=== PATIENT | female | born 1960 | race Caucasian/White ===

== ENCOUNTER 2017-03-24 15:46 | Emergency (ER) | payer BC, SELFPAY ==
[2017-03-24 16:17] LABS: UTC Influenza A Antigen Positive (Negative); UTC Influenza B Antigen Negative (Negative)
[2017-03-24 16:44] VITALS: BP 125/80; PULSE 92; RESP 20; TEMP 37.7; O2SAT 94
--- NOTE | 2017-03-24 16:51 | HMH.EDUTC ---
[facility] [place] Disposition Clinical Impression: Influenza A Disposition: Home, Self-Care Condition on Discharge: Good Instructions: DI for Influenza -- Adult Additional Instructions: * Discussed tamiflu risks and possible benefits. patient declined. * Lots of rest * Increase fluids, water, gatorade, powerade, pedialyte if /toddler/child * Monitor Temp. Tylenol every 4 hours as needed no more then 5 times a day or 4000mg in 24 hours and/or ibuprofen every 6 hours as needed no more then 3200mg in 24 hours (as long as your primary care doctor has told you that it is ok to take both) for fever/aches/pain. ER if fever no less than 101 despite tylenol and Ibuprofen * OTC cold/flu/sinus medication is ok but pick one. Do not take multiple different ones as they have similar ingredients and you can overdose on cold medication. * Inhaler every 4-6 hours as needed like you requested for chest tightness, wheezing intermittently * You (or your child) are contagious until no fever, aches, chills x 24 hours without medication for symptoms. Prescriptions: Albuterol Sulfate [Proair Respiclick] 90 mcg IH Q4H PRN #1 inh PRN Reason: Wheezing Referrals: Sharif Jalloh MD [Primary Care Provider] - (IMMEDIATELY for new or worsening symptoms, improvement followed by suddenly feeling worse OR no noticeable improvement over the next 48-72 hours. 911 for difficulty breathing ) Forms: Work/School Release Time of Disposition: 17:02 Medical Decision Making Vital Signs: 03/24/17 16:44 Temperature 100 F H Temperature Source Temporal Artery Scan Pulse Rate [Brachial] 92 H Respiratory Rate 20 Blood Pressure [Right Arm] 125/80 Blood Pressure Mean [Right Arm] 95 Blood Pressure Source [Right Arm] Automatic Cuff Blood Pressure Position [Right Arm] Sitting 02 Sat by Pulse Oximetry 94 L Oxygen Delivery Method Room Air - Lab Data Lab results reviewed: Yes: I reviewed the patient's lab results. Lab Results 03/24/17 16:14: Influenza Type A Ag Positive A, Influenza Type B Ag Negative - Toni Inquiry Pt receiving controlled substance: No [facility] [place] HPI - General Stated complaint: cough,sob Time Seen by Provider: 03/24/17 16:51 Mode of Arrival: Ambulatory Source of Information: Patient Limitations: No Limitations Description of Symptoms (Recalled from Triage Doc. by RN): DRY COUGH, TIGHTNESS IN CHEST, FEVERS, CHILLS SINCE WEDNESDAY HEENT Symptoms (Recalled from RN notes): Yes Resp Symptoms (Recalled from RN notes): Yes Skin Symptoms (Recalled from RN notes): No MS Symptoms (Recalled from RN notes): No Functional Status (Recalled from RN notes): NA - History of Present Illness Provider Complaint: c/o not feeling well since day before yesterday. Started w/ rhinorrhea and felt worse yesterday and today. Now aches, chills, cough. Hx of bronchitis last year. Reports at times, chest feels tight and hears slight wheezing like she did then. + tobacco abuse. Denies COPD. Hasn't taken or tried anything for symptoms. Around someone last week with similiar symptoms. - Related Data Previous Rx's Medication Instructions Recorded Albuterol Sulfate [Proair 90 mcg IH Q4H PRN #1 inh 03/24/17 Respiclick] Allergies Allergy/AdvReac Type Severity Reaction Status Date / Time No Known Allergies Allergy Verified 03/24/17 16:47 - Worker's Comp Is this a Worker's Comp case?: No [facility] History I have reviewed the patient's past medical history: Yes (denies PMHx) Medical History: Denies:: Chronic Obstructive Pulmonary Disease (COPD), Diabetes Mellitus Type 2, Hypertension Other Surgeries: Yes: Other (tonsillectomy, lipoma removed) - *Social History Smoking Status: Current every day smoker Tobacco Type: cigarettes Alcohol Intake: never - Psychiatric History Expresses thoughts of harming self/others: None Suicide Plan Description: No Plan ROS Obtained: Yes Systems reviewed as appropriate & no additional complaints - Constitutional Constitutional
--- NOTE | 2017-03-24 16:59 | ED_ITS ---
[facility] [place] Clinical Impression: Influenza A Disposition: Home, Self-Care Condition on Discharge: Good Instructions: DI for Influenza -- Adult Additional Instructions: * Discussed tamiflu risks and possible benefits. patient declined. * Lots of rest * Increase fluids, water, gatorade, powerade, pedialyte if /toddler/child * Monitor Temp. Tylenol every 4 hours as needed no more then 5 times a day or 4000mg in 24 hours and/or ibuprofen every 6 hours as needed no more then 3200mg in 24 hours (as long as your primary care doctor has told you that it is ok to take both) for fever/aches/pain. ER if fever no less than 101 despite tylenol and Ibuprofen * OTC cold/flu/sinus medication is ok but pick one. Do not take multiple different ones as they have similar ingredients and you can overdose on cold medication. * Inhaler every 4-6 hours as needed like you requested for chest tightness, wheezing intermittently * You (or your child) are contagious until no fever, aches, chills x 24 hours without medication for symptoms. Prescriptions: Albuterol Sulfate [Proair Respiclick] 90 mcg IH Q4H PRN #1 inh PRN Reason: Wheezing Referrals: Sharif Jalloh MD [Primary Care Provider] - (IMMEDIATELY for new or worsening symptoms, improvement followed by suddenly feeling worse OR no noticeable improvement over the next 48-72 hours. 911 for difficulty breathing ) Forms: Work/School Release Time of Disposition: 17:02 Medical Decision Making Vital Signs: 03/24/17 16:44 Temperature 100 F H Temperature Source Temporal Artery Scan Pulse Rate [Brachial] 92 H Respiratory Rate 20 Blood Pressure [Right Arm] 125/80 Blood Pressure Mean [Right Arm] 95 Blood Pressure Source [Right Arm] Automatic Cuff Blood Pressure Position [Right Arm] Sitting 02 Sat by Pulse Oximetry 94 L Oxygen Delivery Method Room Air - Lab Data Lab results reviewed: Yes: I reviewed the patient's lab results. Lab Results 03/24/17 16:14: Influenza Type A Ag Positive A, Influenza Type B Ag Negative - Toni Inquiry Pt receiving controlled substance: No [facility] [place] - General Stated complaint: cough,sob Time Seen by Provider: 03/24/17 16:51 Mode of Arrival: Ambulatory Source of Information: Patient Limitations: No Limitations Description of Symptoms (Recalled from Triage Doc. by RN): DRY COUGH, TIGHTNESS IN CHEST, FEVERS, CHILLS SINCE WEDNESDAY HEENT Symptoms (Recalled from RN notes): Yes Resp Symptoms (Recalled from RN notes): Yes Skin Symptoms (Recalled from RN notes): No MS Symptoms (Recalled from RN notes): No Functional Status (Recalled from RN notes): NA - History of Present Illness Provider Complaint: c/o not feeling well since day before yesterday. Started w/ rhinorrhea and felt worse yesterday and today. Now aches, chills, cough. Hx of bronchitis last year. Reports at times, chest feels tight and hears slight wheezing like she did then. + tobacco abuse. Denies COPD. Hasn't taken or tried anything for symptoms. Around someone last week with similiar symptoms. - Related Data Previous Rx's Medication Instructions Recorded Albuterol Sulfate [Proair 90 mcg IH Q4H PRN #1 inh 03/24/17 Respiclick] Allergies Allergy/AdvReac Type Severity Reaction Status Date / Time No Known Allergies Allergy Verified 03/24/17 16:47 - Worker's Comp Is this a Worker's Comp case?: No [facility] History I have r
== END 2017-03-24 17:11 | disposition home or self-care (01) ==
PROVIDERS: Emergency Provider Nurse Practitioner Family; Family Provider Family Medicine; PCP Family Medicine
DX: J09.X2 Influenza due to identified novel influenza A virus with other respiratory manifestations (principal); F17.210 Nicotine dependence, cigarettes, uncomplicated
CPT/HCPCS: 87804; 99202

== ENCOUNTER 2022-10-28 19:29 | Emergency (ER) | payer OTHER, SELFPAY ==
[2022-10-28] VITALS (7 sets, daily range): BP systolic 115–181; BP diastolic 59–82; PULSE 56–83; RESP 16–18; TEMP 36.7–36.9; O2SAT 95–97; BMI 32.5
--- NOTE | 2022-10-28 21:16 | HMH.EDGENADL ---
Discharge Plan Disposition Patient Disposition: Home, Self-Care Condition: Good Prescriptions Prescriptions: No Action promethazine-DM 120 ML Syrup 5 ml PO Q6HP PRN (Reason: Cough) Qty: 240 0RF azithromycin [Zithromax] 250 MG Tablet 250 mg PO UD DOSE PK Qty: 6 0RF Rx Instructions: Take two (2) tablets today, then one (1) tablet days #2 thru #5 albuterol sulfate 90 MCG aerosol powdr breath activated 90 mcg IH Q4H PRN (Reason: Wheezing) Qty: 1 0RF Rx Instructions: any generic albuterol Referrals Follow up/Referrals: Meghana Bates MD [Primary Care Provider] - See instructions Activity Restrictions/Add. Instructions Additional Instructions/Restrictions: At this time was felt you are safe to be discharged home. New or worsening symptoms please do not hesitate to return the emergency department. Please keep your pressure dressing on for 48 hours. Clinical Impressions Clinical Impression: Varicose vein of leg Discharge ED Provider: Marcin Cisneros General Adult HPI General Chief complaint: Skin/Abscess/Foreign Body Stated complaint: AO08/23@1900 Lt leg lac Time Seen by Provider: 10/28/22 21:02 Mode of Arrival: Ambulatory Source of Information: Patient Limitations: No Limitations Description of Symptoms (Recalled from ER Triage Doc. by RN): pt reports that she knicked her vericose vein and that she can not control the bleeding. right lower leg History of Present Illness HPI narrative: Patient is a 62-year-old female with past medical history of varicose veins on her bilateral lower extremities who presents emergency department for evaluation of bleeding. Patient was shaving her left ankle when she accidentally cut one of her varicose veins which has not stopped bleeding since prior to arrival. No other acute complaints at this time. Related Data Previous Rx's Medication Instructions Recorded albuterol sulfate 90 mcg/actuation 90 mcg IH Q4H PRN Wheezing #1 inh 03/24/17 breath activated powder inhaler azithromycin 250 mg tablet 250 mg PO UD DOSE PK ##6 04/05/18 (Zithromax) promethazine-DM 6.25 mg-15 mg/5 mL 5 ml PO Q6HP PRN Cough ##240 04/05/18 oral syrup Allergies Allergy/AdvReac Type Severity Reaction Status Date / Time No Known Allergies Allergy Verified 03/24/17 16:47 [facility] Disclaimer: The information contained in this section may have been updated after the patient was seen, as this information can be updated by other users. Social History Smoking Status: Current every day smoker tobacco type: cigarettes second hand exposure: Yes alcohol intake: never current occupational status: retired Travel in the last 8 weeks: None housing: house ROS Obtained: Yes Systems reviewed as appropriate & no additional complaints except as documented Physical Exam General General appearance: alert and in no apparent distress Head Head exam: atraumatic and normocephalic Eye Eye exam: Present PERRL and EOMI ENT ENT exam: Present mucous membranes moist Neck Neck exam: Present normal inspection Chest Chest inspection: Present normal inspection and symmetric chest wall rise Respiratory Respiratory exam: Present normal lung sounds bilaterally; Absent respiratory distress Cardiovascular Cardiovascular exam: Present regular rate and normal rhythm Abdominal Exam Abdominal exam: Present soft Extremities Exam Extremities exam: Present other (Consistent oozing venous blood left medial ankle, punctate wound) Neurological Exam Neurological exam: Present alert Psychiatric Psychiatric exam: Present normal affect Skin Skin exam: Present warm and dry Medical Decision Making Toni Inquiry Pt receiving controlled substance: No Vital Signs: 10/28/22 19:31 10/28/22 20:00 10/28/22 20:30 Temperature 98.1 F Temperature Source Oral Pulse Rate 83 75 Pulse Rate [Right] 82 Respiratory Rate 18 Blood Pressure 120/69 116/68 Blood Pressure [Right Arm] 18
== END 2022-10-28 23:22 | disposition home or self-care (01) ==
PROVIDERS: Emergency Provider Emergency Medicine; PCP Family Medicine
DX: I83.892 Varicose veins of left lower extremity with other complications (principal); F17.210 Nicotine dependence, cigarettes, uncomplicated
CPT/HCPCS: 90715; 96372; 99283

== ENCOUNTER → 2022-12-15 11:36 | Outpatient (CLI) | payer OTHER, SELFPAY ==
--- NOTE | 2022-12-15 11:56 | XR_ITS ---
FINAL REPORT CLINICAL HISTORY: cervicalgia, numbness and tingling BUE FINDINGS: CERVICAL SPINE 3 views were obtained. There is no acute fracture. There is mild retrolisthesis of C5 on C6. Moderate degenerative changes are noted. There is no soft tissue abnormality. IMPRESSION: Degenerative change with no acute bony abnormality. Reviewed, Interpreted and Dictated by Neel Garnica III, MD Transcribed by Sharifa Christensen Authenticated and [facility]
[2022-12-15 12:20] LABS: Basophils # 0.1 K/mm3 (0-0.2); Eosinophils # 0.3 K/mm3 (0.0-0.4); Eosinophils % 2.5 % (0.1-12.0); Hematocrit 46.9 % (37.0-47.0); Lymphocytes # 3.1 K/mm3 (0.7-4.5); Lymphocytes % 30.8 % (10-50); Mean Corpuscular HGB Conc 34.1 g/dL (31.8-35.4); Mean Corpuscular Hemoglobin 32.9 pg (27.0-31.2); Mean Corpuscular Volume 96.5 fl (81-99); Mean Platelet Volume 10.3 fl (7.4-10.4); Monocytes # 0.4 K/mm3 (0.1-1.0); Monocytes % 4.2 % (1.7-9.3); Neutrophils # 6.2 K/mm3 (1.8-7.8); Neutrophils % 61.6 % (37.0-80.0); Platelet Count 164 K/mm3 (142-424); Red Blood Count 4.86 M/mm3 (4.20-5.40); Red Cell Distribution Width 13.7 % (11.5-17.5); White Blood Count 10.1 K/mm3 (4.8-10.8)
[2022-12-15 14:57] LABS: Alanine Aminotransferase 45 U/L (12-78); Albumin Level 4.8 g/dl (3.5-5.0); Albumin/Globulin Ratio 1.8 (1.1-1.8); Alkaline Phosphatase 82 U/L (38-126); Anion Gap 11.4 mEq/L (5-15); Aspartate Amino Transferase 40 U/L (14-36); Bilirubin,Total 0.9 mg/dl (0.2-1.3); Blood Urea Nitrogen 23 mg/dl (7-17); Carbon Dioxide 30 mmol/L (22.0-30.0); Chloride 102 mmol/L (98-107); Chol/HDL Ratio 6.2 (1-3.5); Cholesterol 266 mg/dl (140-200); Estimated Glomerular Filt Rate 72 ml/min (>60); GFR (African American) 87 ML/MIN (>60); Globulin 2.7 g/dL (1.3-3.2); Glucose 104 mg/dl (74-100); HDL Cholesterol 43 mg/dl (40-60); Magnesium 1.7 mg/dl (1.6-2.3); Potassium 4.4 mmoL/L (3.5-5.1); Sodium 139 mmol/L (136-145); Total Protein,Serum 7.5 g/dl (6.3-8.2); Triglycerides 221 mg/dl (30-150); VLDL Cholesterol 44 mg/dL (0-40)
[2022-12-15 15:08] LABS: Direct LDL Cholesterol 170.99 mg/dL (100-129)
== END ==
PROVIDERS: PCP Nurse Practitioner Family; Visit Provider Nurse Practitioner Family
DX: R51.9 Headache, unspecified (principal); I10 Essential (primary) hypertension; M54.2 Cervicalgia; Z72.0 Tobacco use
CPT/HCPCS: 36415; 72040; 80053; 80061; 83735; 84443; 85025

== ENCOUNTER → 2023-02-23 16:51 | Outpatient (CLI) | payer OTHER, SELFPAY | PROVIDERS: PCP Nurse Practitioner Family; Visit Provider Nurse Practitioner Family | DX: J32.9 Chronic sinusitis, unspecified (principal) | CPT/HCPCS: 87635 ==

== ENCOUNTER 2023-03-30 15:56 | Emergency (ER) | payer MEDICARE, SELFPAY ==
[2023-03-30 16:15] VITALS: BP 141/57; PULSE 65; RESP 18; TEMP 36.9; O2SAT 96; BMI 33.5
--- NOTE | 2023-03-30 16:22 | EXP.UTC ---
Discharge Plan Disposition Patient Disposition: Home, Self-Care Condition: Good Prescriptions Prescriptions: New polymyxin B sulf-trimethoprim 10,000 unit- 1 mg/mL drops 1 drp Eye-Right Q3H 7 Days Qty: 10 0RF Rx Instructions: while awake; do not exceed 6 doses in 24 hours No Action fluticasone propionate [Flonase Allergy Relief] 50 mcg/actuation spray,suspension 1 spray intranasal DAILY PRN (Reason: allergy symptoms) 30 Days Qty: 16 2RF Rx Instructions: administer into each nostril atorvastatin 20 mg tablet 20 mg PO DAILY 90 Days Qty: 90 0RF lisinopril 5 mg tablet 5 mg PO DAILY 90 Days Qty: 90 0RF lisinopril 10 mg tablet 10 mg PO DAILY 90 Days Qty: 90 0RF Referrals Follow up/Referrals: Ree Rao APRN [Primary Care Provider] - See instructions Activity Restrictions/Add. Instructions Additional Instructions/Restrictions: Use the eye drops as directed. Apply warm wet compresses to your right upper eye lid for 10 to 15 minutes three or four times per day for the next several days. Follow up with your regular doctor. Follow up with your eye doctor in 2 to 3 days if this is not getting some better by then. GO TO THE ER FOR ANY WORSENING SYMPTOMS OR CONCERNS Clinical Impressions Clinical Impression: Chalazion of right eye Instructions Patient Instructions: How to Instill Eye Drops, MARSHA Caraballo for Chalazion Discharge ED Provider: Gal Decker [facility] [place] HPI General Stated complaint: knot on her right eye Time Seen by Provider: 03/30/23 16:22 History of Present Illness Provider Complaint: She states that 3 days ago she noticed she was having some right eye discomfort. Once she examined her eye she noted a small bump near the outer corner beneath the upper eye lid. At this time she continues to c/o mild right eye discomfort. She denies any injury or foreign body. Related Data Previous Rx's Medication Instructions Recorded atorvastatin 20 mg tablet 20 mg PO DAILY 90 days #90 tabs 02/15/23 lisinopril 10 mg tablet 10 mg PO DAILY 90 days #90 tabs 02/15/23 lisinopril 5 mg tablet 5 mg PO DAILY 90 days #90 tabs 02/15/23 fluticasone propionate 50 1 spray intranasal DAILY PRN 02/23/23 mcg/actuation nasal allergy symptoms 30 days #16 grams spray,suspension (Flonase Allergy Relief) polymyxin B sulfate 10,000 1 drp Eye-Right Q3H 7 days #10 mL 03/30/23 unit-trimethoprim 1 mg/mL eye drops Allergies Allergy/AdvReac Type Severity Reaction Status Date / Time No Known Allergies Allergy Verified 03/30/23 16:31 [facility] Dis[facility]: The information contained in this section may have been updated after the patient was seen, as this information can be updated by other users. Medical History Hypertension Surgical History H/O excision of mass H/O tubal ligation Family History Mother Anemia Cancer Hypertension Father Heart attack Coronary artery disease Hyperlipidemia Grandmother Stroke Family/Other Thyroid disorder Social History Smoking Status: Current every day smoker tobacco type: cigarettes second hand exposure: Yes alcohol intake: never current occupational status: retired Travel in the last 8 weeks: None housing: house ROS Obtained: Yes All systems reviewed & no additional complaints except as documented Constitutional Constitutional: Denies chills and Denies fever(s) Eyes Eyes: Reports as per HPI, Denies change in vision and Denies eye discharge ENT Ears, Nose, Mouth, and Throat: Denies dizziness, Denies otalgia and Denies sore throat Cardiovascular Cardiovascular: Denies chest pain Respiratory Respiratory: Denies shortness of breath, Denies chest congestion, Denies cough, Denies stridor and Denies wheezing Gastrointestinal Gastrointestingal: Denies nausea or vomiting Musculoskeletal Musculoskeletal: Reports system reviewed and no additional complaints, except as documented and Denies arthralgias Integumentary/Breasts Skin/Breast: Denies rash Neurologic Neurologic: Denies dizziness and Denies paresthesias Allergic/Immunologic Allergic/Immunologic: Denies wheezing Physical Exam General General appearance: alert and in no apparent distress Head Head exam: atraumatic, normocephalic and normal inspection Eye Eye exam: Present PERRL and EOMI Expanded Eye Exam Eyelids: left: normal inspection and right: erythema and stye Pupils: Left: size (2), Right: size (2) and Bilateral: regular, round and reactive Sclera/Conjunctival: bilateral: normal inspection ENT ENT exam: Present normal exam, normal oropharynx, mucous membranes moist, TM's normal bilaterally and normal external ear exam Neck Neck exam: Present normal inspection, full ROM and trachea midline; Absent meningismus or lymphadenopathy Chest Chest inspection: Present normal inspection and symmetric chest wall rise; Absent tenderness Respiratory Respiratory exam: Present normal lung sounds bilaterally; Absent respiratory distress Cardiovascular Cardiovascular exam: Present regular rate and normal rhythm; Absent JVD Abdominal Exam Abdominal exam: Present soft and normal bowel sounds; Absent distention, tenderness or guarding Extremities Exam Extremities exam: Present normal inspection, full ROM and normal capillary refill; Absent calf tenderness Back Exam Back exam: Present normal inspection; Absent tenderness Neurological Exam Neurological exam: Present alert and oriented X3 Psychiatric Psychiatric exam: Present normal affect and normal mood Skin Skin exam: Present warm, dry, intact and normal color Lymphatic Lymphatic Findings: no adenopathy Medical Decision Making Medical Records Medical records reviewed: No I reviewed the patient's medical records. Toni Inquiry Pt receiving controlled substance: No
[2023-03-30 16:48] VITALS: BP 141/57; PULSE 65; RESP 19; TEMP 36.9; O2SAT 96
== END 2023-03-30 16:48 | disposition home or self-care (01) ==
PROVIDERS: Emergency Provider Nurse Practitioner Family; PCP Nurse Practitioner Family
DX: H53.141 Visual discomfort, right eye (principal); H00.11 Chalazion right upper eyelid; F17.210 Nicotine dependence, cigarettes, uncomplicated; I10 Essential (primary) hypertension
CPT/HCPCS: 99204; 99212; G0463

== ENCOUNTER 2023-04-14 07:06 | Outpatient (CLI) | payer MEDICARE, SELFPAY ==
--- NOTE | 2023-04-14 | CA_ITS ---
APPROVED REPORT Exam: Exercise Treadmill Technologist: Silvana Anand, Ht: 5 ft 4 in Wt: 195 lbs BSA: 1.94 m2 HR: 58 bpm BP: 136/76 mmHg Rhythm: NSR Medical History Medical History: HTN, Hyperlipidemia, Smoking Medications: Lisinopril,,,,, Atorvastatin,,,,, Allergies: No known drug allergies Cardiac Risk Factors: HTN, Hyperlipidemia, FHX of CAD, Smoking Stress Test Details Test: Geoff HR Resting HR: 75 bpm Max Heart Rate (APMHR): 155 bpm Max HR Achieved: 140 bpm Target HR (85% APMHR): 132 bpm % of APMHR: 90 Recovery HR: 83 bpm HR response to stress: Normal HR response to stress BP Resting BP: 136.0/76 mmHg Max BP: 260/86 mmHg Recovery BP: 137.0/79.0 mmHg BP response to stress: Abnormal hypertensive response to stress. ECG Resting ECG: NSR Stress EC mm upsloping ST depression Arrhythmia: Occasional PACs Recovery ECG: Return to baseline within 3 minutes of recovery Recovery Arrhythmia: None Clinical Exercise duration: 04:15 min Highest Stage Achieved: Stage 0: 1.7 mph at 0% grade. Exercise capacity: 4.6 METs Overall Exercise Capacity for Age: Poor Stress ECG Conclusion The patient was able to exercise for a total of 4 minutes, 15 seconds. She achieved a total of 4.6 METS. She has poor exercise capacity compared to age and sex matched peers. She has normal HR, but exaggerated hypertensive BP, response to exercise. MAX HR: 140 % OF PM: 90% MAX BP: 216/86 METS: 4.6 Test stopped due to dyspnea, no chest pain. Arrhythmias: Occasional PACs probabl ST changes: [address] depression Conclusion: Poor exercise capacity. Hypertensive BP response to exercise. ECG stress test suggestive of possible ischemia. Myoview images are reported separately. Test Summary REST . . . . . . . Standing REST . . . . . . . Sitting REST 05:17 0.0 0.0 75 . 136/ 76 . . Stage 1 01:00 10.0 1.7 103 . . . . Stage 1 02:00 10.0 1.7 124 . . . . Stage 1 . . . . . . . Stage held Stage 1 03:00 10.0 1.7 133 . 216/ 86 . . Stage 1 04:00 10.0 1.7 138 . 216/ 86 . . Stage 1 . . . . . . . Stage resumed Stage 1 04:15 10.0 1.7 139 . 216/ 86 . Stop exercise at 04:15 RECOVERY 01:00 0.0 0.0 124 . . . . RECOVERY 02:00 0.0 0.0 101 . . . . RECOVERY 03:00 0.0 0.0 86 . 205/ 83 . . RECOVERY 04:00 0.0 0.0 89 . 205/ 83 . . RECOVERY 05:00 0.0 0.0 89 . 173/ 72 . . RECOVERY 06:00 0.0 0.0 81 . 182/ 77 . . RECOVERY 07:00 0.0 0.0 82 . 182/ 77 . . RECOVERY 07:46 0.0 0.0 80 . 137/ 79 . . Electronically signed by : Inocencia Cee MD 04/17/2023 23:40:00
--- NOTE | 2023-04-14 07:06 | NM_ITS ---
APPROVED REPORT Exam: Nuclear Stress Test Indication: SOB, HTN, DM, High cholesterol, Family history, CAD Patient Location: Outpatient Stress Tech: Silvana Anand [place] Tech:Sheryl Parker, ARRT, RT (R)(N) Ht: 5 ft 4 in Wt: 195 lbs Bra Size: 38DD HR: 75 bpm BP: 136/76 mmHg BSA: 1.94 m2 Rhythm: NSR TID: 1.12 BMI: 33.4 History: SOB, HTN, DM, High cholesterol, Family history, CAD Procedure: Patient exercised on Geoff protocol 4:15 minutes and sec, resting heart rate 75 bpm, resting blood pressure 136/76 mmHg, with exercise maximum heart rate achived was 140 bpm which is 90 % of the maximum predicted heart rate and blood pressure was 216/86 mmHg. Test was stopped due to SOB. Patient denied any complaint of chest pain. Patient has exercise capacity, achieved 4.6 METs of workload on treadmill, the blood pressure response to exercise was . Cardiac Stress and Resting SPECT Images: Cardiac Stress and Resting SPECT images were obtained using technetium 99m Myoview 31.6 mCi stress and 10.69 mCi at rest. Resting and stress imaging in supine and prone positions demonstrate no evidence of fixed or reversible perfusion defects. Gated imaging demonstrates normal global and regional LV systolic function. LVEF is calculated at 62%. Conclusion: No evidence of fixed or reversible perfusion defects. Gated imaging demonstrates normal global and regional LV systolic function. LVEF is calculated at 62%. Of note, the patient had poor exercise capacity during ECG stress test, as well as markedly elevated XLL=650 mmHg at peak stress. Aggressive BP control is recommended. Electronically signed by : Inocencia Cee MD 04/17/2023 23:42:15
[2023-04-14] MEDS: ISOTOPE MYOVIEW (PER STUDY) 1 DOSE IV (09:11)
[2023-04-14] MEDS: SODIUM CHLORIDE 0.9% 10ML SYR (RAD ONLY) 10 ML IV ×2 (09:11)
--- NOTE | 2023-04-14 09:18 | CA_ITS ---
APPROVED REPORT EXAM: Comprehensive 2D, Doppler, and color-flow Echocardiogram Diamond Powder Technician: MARIANO Kilgore, RVS Ht: 5 ft 4 in Wt: 195lbs BSA: 1.94 BP: 112/85 mmHg Indications: Smoker, Dyspnea, Edema, HTN, HLD 2D Dimensions Left Atrium 3.19 cm LA Volume 46.40 mL LA Volume Index [id number] mL/m2 (M/F) 16-34 M-Mode Dimensions RVDd 2.14 cm (0.9-2.6) LA Diam 3.60 cm (1.9-4.0) LVDd 4.35 cm (3.5-5.7) LVDs 3.15 cm (3.5-5.7) IVSd 0.94 cm (0.6-1.1) PWd 1.04 cm (0.6-1.1) EF (Teich) 53.90% EPSs 0.29 cm FS 27.60% EDV (Teich) 85.40 mL TAPSE 2.38 (<1.7) ESV (Teich) 39.40 mL LV Diastology E Decel Time 273 (160-240 msec) E/A Ratio 0.61 MED A' 12.80 cm/s LAT A' 13.40 cm/s Aortic Valve HERVE Index 1.23 cm2/m2 AoV Peak Damian. 138.0 (50-130 cm/s) AO Peak GR. 7.60 mmHg AO Mean GR. 3.90 (<5 mmHg) AO VTI 29.7 (18-25 cm) HERVE (VTI) 2.43 (2.5-4.5 cm2) Mitral Valve MV A Velocity 84.0 (40-130 cm/s) E/A Ratio 0.61 Pulmonary Valve WI End VMAX 154.0 cm/s Left Ventricle The left ventricle is normal size. The left ventricular systolic function is normal. The left ventricular ejection fraction is within the normal range. There is normal left ventricular wall thickness. There is normal LV segmental wall motion. The left ventricular diastolic function is normal. LVEF is 60%. Right Ventricle The right ventricle is normal size. The right ventricular systolic function is normal. Atria The left atrium size is normal. The right atrium size is normal. There is no Doppler evidence of interatrial shunt. Aortic Valve The aortic valve opens well. There is no aortic valvular stenosis. No aortic regurgitation is present. Mitral Valve The mitral valve is normal in structure. No evidence of mitral valve stenosis. There is no mitral valve regurgitation noted. Tricuspid Valve The tricuspid valve leaflets are thin and pliable. Trace tricuspid regurgitation. There is insufficient TR jet to estimate RVSP. Pulmonic Valve The pulmonary valve is normal in structure. Trace pulmonic regurgitation. Great Vessels The aortic root is normal in size. The ascending aorta is normal in size. IVC is normal in size and collapses >50% with inspiration. Pericardium Trivial pericardial effusion is noted anteriorly. No echo indications of tamponade. Other Information Study Quality: Adequate Conclusion Normal biventricular systolic function. No significant valvular stenosis or regurgitation. Trivial pericardial effusion. Electronically signed by : Inocencia Cee MD 04/18/2023 14:53:13
[2023-04-14 11:16] LABS: Basophils # 0.1 K/mm3 (0-0.2); Basophils % 1.1 % (0.1-2.0); Eosinophils # 0.4 K/mm3 (0.0-0.4); Eosinophils % 3.1 % (0.1-12.0); Hematocrit 47.1 % (37.0-47.0); Hemoglobin 15.6 g/dL (12.2-16.2); Lymphocytes # 3.4 K/mm3 (0.7-4.5); Lymphocytes % 29.6 % (10-50); Mean Corpuscular HGB Conc 33.2 g/dL (31.8-35.4); Mean Corpuscular Volume 96.3 fl (81-99); Mean Platelet Volume 10.5 fl (7.4-10.4); Monocytes # 0.4 K/mm3 (0.1-1.0); Monocytes % 3.9 % (1.7-9.3); Neutrophils # 7.1 K/mm3 (1.8-7.8); Neutrophils % 62.3 % (37.0-80.0); Platelet Count 178 K/mm3 (142-424); Red Blood Count 4.89 M/mm3 (4.20-5.40); Red Cell Distribution Width 13.7 % (11.5-17.5); White Blood Count 11.3 K/mm3 (4.8-10.8)
[2023-04-14 11:33] LABS: Chloride 104 mmol/L (98-107); Potassium 4.4 mmoL/L (3.5-5.1); Sodium 140 mmol/L (136-145)
[2023-04-14 11:35] LABS: Bilirubin,Unconjugated 0.8 mg/dL (0.0-1.1); Blood Urea Nitrogen 15 mg/dl (7-17); Estimated Glomerular Filt Rate 72 ml/min (>60); GFR (African American) 87 ML/MIN (>60)
[2023-04-14 11:36] LABS: Alanine Aminotransferase 41 U/L (12-78); Albumin Level 4.4 g/dl (3.5-5.0); Alkaline Phosphatase 90 U/L (38-126); Anion Gap 9.4 mEq/L (5-15); Aspartate Amino Transferase 43 U/L (14-36); Bilirubin,Direct 0.1 mg/dl (0.0-0.4); Bilirubin,Indirect 0.8 mg/dL (0.0-0.9); Bilirubin,Total 0.9 mg/dl (0.2-1.3); Calcium 9.8 mg/dl (8.4-10.2); Carbon Dioxide 31 mmol/L (22.0-30.0); Chol/HDL Ratio 4.2 (1-3.5); Cholesterol 179 mg/dl (140-200); Glucose 93 mg/dl (74-100); HDL Cholesterol 43 mg/dl (40-60); Total Protein,Serum 6.9 g/dl (6.3-8.2); Triglycerides 163 mg/dl (30-150); VLDL Cholesterol 33 mg/dL (0-40)
[2023-04-14 11:51] LABS: Free T4 (Free Thyroxine) 0.87 ng/dl (0.78-2.19)
[2023-04-14 12:06] LABS: Thyroid Stimulating Hormone 1.15 uIU/mL (0.465-4.68)
== END 2023-04-14 23:59 ==
LOC: RAD 07:06
PROVIDERS: PCP Nurse Practitioner Family; Visit Provider Nurse Practitioner Family
DX: I10 Essential (primary) hypertension (principal); R06.02 Shortness of breath; R06.09 Other forms of dyspnea; Z82.49 Family history of ischemic heart disease and other diseases of the circulatory system; Z79.899 Other long term (current) drug therapy
CPT/HCPCS: 36415; 78452; 80048; 80061; 80076; 83735; 84439; 84443; 85025; 93017; 93018; 93306; A9502

== ENCOUNTER 2023-05-17 12:35 | Outpatient (CLI) | payer MEDICARE, SELFPAY ==
--- NOTE | 2023-05-17 12:35 | CT_ITS ---
FINAL REPORT CLINICAL HISTORY: neck pain, stiffness, sinus pressure, pain at base of skull, pain in neck FINDINGS: CT CERVICAL SPINE WITHOUT CONTRAST TECHNIQUE: Axial images were obtained of the cervical spine by computed tomography. Coronal and sagittal reconstruction process performed. This study was performed with techniques to keep radiation doses as low as reasonably achievable (ALARA). Individualized dose reduction techniques using automated exposure control or adjustment of mA and/or kV according to the patient's size were employed. FINDINGS: There is no acute fracture or subluxation. There are mild to moderate degenerative changes. Disc osteophyte complexes are seen at C5-6 and C6-7. There is mild central canal stenosis at C5-6 with neuroforaminal narrowing worst at C5-6. Limited images of the lung apices demonstrate emphysema and scarring. IMPRESSION: Degenerative changes with no acute bony abnormality. Reviewed, Interpreted and Dictated by Neel Garnica III, MD Transcribed by Sharifa Christensen Authenticated and [facility]
== END 2023-05-17 23:59 ==
LOC: RAD 12:35
PROVIDERS: PCP Nurse Practitioner Family; Visit Provider Nurse Practitioner Family
DX: M54.2 Cervicalgia (principal); M43.6 Torticollis
CPT/HCPCS: 72125

== ENCOUNTER 2023-07-22 13:39 | Outpatient (RCR) | payer MEDICARE, SELFPAY | END 2023-07-22 15:00 | disposition home or self-care (01) | LOC: PT 13:39 | PROVIDERS: Visit Provider Specialist/Technologist Athletic Trainer | DX: M50.122 Cervical disc disorder at C5-C6 level with radiculopathy (principal) | CPT/HCPCS: 97163 ==

== ENCOUNTER 2024-05-11 15:12 | Outpatient (CLI) | payer MEDICARE, SELFPAY ==
[2024-05-11 16:27] LABS: Coronavirus 19, PCR Not Detected (NotDetected); Human Rhinovirus Not Detected (NotDetected); Influenza A, PCR Not Detected (NotDetected); Influenza B, PCR Not Detected (NotDetected); Respiratory Syncytial Virus Not Detected (NotDetected)
== END 2024-05-11 23:59 | disposition home or self-care (01) ==
LOC: LAB.DROPOF 05-15 15:13
PROVIDERS: PCP Nurse Practitioner Family; Visit Provider Nurse Practitioner Family
DX: J06.9 Acute upper respiratory infection, unspecified (principal)
CPT/HCPCS: 87631

== ENCOUNTER 2024-05-18 12:47 | Outpatient (CLI) | payer MEDICARE, SELFPAY ==
--- NOTE | 2024-05-18 12:48 | MM_ITS ---
PROCEDURE INFORMATION: Exam: MG Bilateral Screening 3D Mammography Exam date and time: 05/18/2024 1:02 PM Age: 64 years old Clinical indication: Screening examination TECHNIQUE: Imaging protocol: Bilateral Screening tomosynthesis and 2D mammography including computer-aided detection (CAD) when performed. COMPARISON: No relevant prior studies available. FINDINGS: MAMMOGRAPHY: Breast composition: There are scattered areas of fibroglandular density. Mass: None. Architectural distortion: None. Calcifications: No suspicious calcifications. Asymmetric density: None. Skin thickening: None. Axillary adenopathy: None. IMPRESSION: No mammographic evidence of malignancy. Annual screening is recommended unless otherwise clinically indicated. ASSESSMENT: BI-RADS Category 1: Negative.
== END 2024-05-18 23:59 | disposition home or self-care (01) ==
LOC: RAD 12:48
PROVIDERS: PCP Nurse Practitioner Family; Visit Provider Nurse Practitioner Family
DX: Z12.31 Encounter for screening mammogram for malignant neoplasm of breast (principal)
CPT/HCPCS: 77063; 77067

== ENCOUNTER 2024-06-20 13:31 | Outpatient (CLI) | payer MEDICARE, SELFPAY ==
--- OUTSIDE RECORDS SUMMARY | 2024-06-20 13:34 | XMS_ITS | Clinical Summary ---
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 Name Role Phone KB BLACK Unavailable [phone] Noe Kilpatrick MD Unavailable [phone] Reason for Visit and Chief Complaint The Chief Complaint is: Stiff neck Problems Includes: Problems addressed during this encounter and other active Problems All Visits Onset Date Resolved Date Provider Condition S tatus Neck Pain 07/05/2023 Wilder Smith PA-C Active Last Documented On 11:06AM ; [facility] Plan of Treatment - Patient screened for future fall risk: documentation of any fall with injury in past year - Last Documented On 07/14/2023 10:42AM ; [facility] Fall Risk Assessment: This patient has been identified as a fall risk. Balance/gait along with postural blood pressure, vision and home fall hazards have been assessed. Medications have been reviewed, and recommendations made with regard to contributing factors for future falls. Plan of care: Consideration of vitamin D supplementation along with balance and strength training with consideration for formal physical therapy has been discussed with the patient. - Last Documented On 07/14/2023 10:42AM ; [facility] Patient was seen by myself Wilder Smith PA-C. Patient will follow up with Dr. Kilpatrick in 1 month for her neck we are going to do some physical therapy to start that also going to refer her to Neurology to evaluate this lesion denies see at C1-C2 but not commented on by the radiologist. This may or may not be causing some facial symptoms that she is having when she is coughing were causing possibly a trigeminal neuralgia - Last Documented On 07/14/2023 10:42AM ; [facility] Pending Tests Order Diagnosis Results Due Ordering P rovider Therapy - Physical Therapy Cervical Tobacco abuse counseling 07/14/23 Wilder Smith PA-C Last Documented On 4 10:21AM ; [facility] Radiology - MRI MRI Cervical Spine Cervicalgia 07/19/23 Wilder Smith PA-C Last Documented On 4 1:28PM ; [facility], [facility] Instructions to patient Intervention and counseling on cessation of tobacco use Last Documented On 4 10:05AM ; [facility], [facility] Intervention and counseling on cessation of tobacco use Last Documented On 4 10:09AM ; [facility], [facility] Lose weight Last Documented On 4 10:05AM ; [facility], [facility] Assessments Includes: Assessments from this encounter Findings - Overweight - Last Documented On 07/14/2023 10:42AM ; [facility], [facility] C5-C6 DDD - Last Documented On 07/14/2023 10:42AM ; [facility], [facility] Possible lesion seen on T2 possibly causing some trigeminal neuralgia - Last Documented On 07/14/2023 10:42AM ; [facility], [facility] Instructions Includes: Instructions from this encounter Instructions to patient Intervention and counseling on cessation of tobacco use Last Documented On 4 10:05AM ; [facility], [facility] Intervention and counseling on cessation of tobacco use Last Documented On 4 10:09AM ; [facility], [facility] Lose weight Last Documented On 4 10:05AM ; [facility], [facility] Medical Equipment - Implanted Devices Includes: Current Devices No Medical Equipment Recorded Medications Includes: Medications discussed during this encounter and other current Medications Current Medications (continue as prescribed) Aspirin 81 MG Oral Tablet Delayed Release 07/05/2023 Provider: Diagnosis: Last Documented On 4 11:00AM By Jennifer LOPEZS, [facility] Daily Multivitamin Oral Capsule 07/05/2023 Provider: Diagnosis: Last Documented On 4 11:00AM By Jennifer Archibald ; [facility] Centrum Silver 50+Women Oral Tablet 07/05/2023 Provi isabelle: Diagnosis: Last Documented On 4 11:07AM By Sandra Loza ; [facility], [facility] Atorvastatin Calcium 20 MG Oral Tablet 05/21/2023 Pr ovider: KB BLACK Diagnosis: Last Documented On 4 11:06AM By Sandra Loza ; [facility], [facility] Lisinopril 20 MG Oral Tablet 05/21/2023 Provider: KB SCHROEDERNER Diagnosis: Last Documented On 4 11:06AM By Sandra Loza ; [facility], [facility] Meloxicam 15 MG Oral Tablet 05/21/2023 Provider: KB WAYNE Diagnosis: Last Documented On 4 11:06AM By Sandra Loza ; [facility], [facility] Naproxen 500 MG Oral Tablet 04/16/2023 Provider: KBMichael BLACK Diagnosis: Last Documented On 4 11:06AM By Sandra Loza ; [facility], [facility] Cyclobenzaprine HCl 10 MG Oral Tablet 04/16/2023 Pro vider: KB BLACK Diagnosis: Last Documented On 4 11:06AM By Sandra Loza ; [facility], [facility] Polymyxin B-Trimethoprim 100 00-0.1 UNIT/ML-% Ophthalmic Solution 03/30/2023 Provider: Diagnosis: Last Documented On 4 11:06AM By Sandra Loza ; [facility], [facility] Medications Administered Includes: Administered Medications from this encounter No Administered Medications Recorded Vital Signs Includes: Vital Signs from this encounter Vital Name 07/14/2023 10:08A Height (in) 64 Weight (lb) 195 Body Mass Index 33.5 Body Surface Area 1.9 Pain Level 1 Note: lc Last Documented: On 07/14/2023 10:08A M ; [facility], [facility] Results Includes: Results discussed during this encounter No Results Recorded For Specified Dates History of Present Illness Includes: History of Present Illness from this encounter HPI Nicole Ochoa is a 63 year old female. - Symptoms Grinding and popping Sitting up straight makes pain better Looking down makes pain worse. - Allergy list reviewed - Problem list reviewed - Medication list reviewed - Previous history of new onset pain Injury is not work related or an automotive accident - Patient pain level from 1-10: 3 - History of Home Exercise - No previous treatment. - - Review of medications documented Medications used for this condition: Follow up of her cervical spine MRI. She has been dealing with the neck pain that started August 2022 no specific injury she does feel better when she is on anti-inflammatories. She not describing any radicular symptoms with this however. When she states that she coughs she does get this pain across the left side of her face and some associated ear and jaw pain with it and does feel like her eyes when it popped out the back of her head. No bowel or bladder issues with this. No previous neck surgery. Social History Description Last Updated Alcohol use 07/14/2023 Last Documented On 4 10:42AM ; [facility], [facility] Caffeine use 07/14/2023 Last Documented On 4 10:42AM ; [facility], [facility] No recent change in diet 07/14/2023 Last Documented On 4 10:42AM ; [facility], [facility] Not exercising regularly 07/14/2023 Last Documented On 4 10:42AM ; [facility], [facility] Not using drugs 07/14/2023 Last Documented On 4 10:42AM ; [facility], [facility] Tobacco use 07/14/2023 Last Documented On 4 10:42AM ; [facility], [facility] Yes, current smoker. 07/14/2023 Last Documented On 4 10:42AM ; [facility], [facility] Smoking Status Unknown Procedures and Surgical History Includes: Procedures from this encounter Procedures Code Diagnosis Performing Provider Service L ocation Service Date intervention and counseling on cessation of tobacco use 4000F Last Documented On 4 10:05AM ; [facility], [facility] use of tobacco assessment performed 1000F Last Documented On 4 10:05AM ; [facility], [facility] patient screened for future fall risk: documentation of any fall with injury in past year 1100F Last Documented On 4 10:05AM ; [facility], [facility] review of medications documented 1160F Last Documented On 4 10:05AM ; [facility], [facility] an X-ray was performed [id number] Last Documented On 4 10:05AM ; [facility], [facility] Surgical History Last Updated Past Surgical History: 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 ~Harmony teeth ~Tubal ligation 07/14/2023 Last Documented On 4 10:42AM ; [facility], [facility] Medical History Includes: Medical History addressed during this encounter Description Last Updated History of History of Cancer 07/14/2023 Last Documented On 4 10:42AM ; [facility] History of Hypertension 07/14/2023 Last Documented On 4 10:42AM ; [facility], [facility] Family History Includes: Family History addressed during this encounter Description Last Updated Family history of cancer 07/14/2023 Last Documented On 4 10:42AM ; [facility] Family history of systemic hypertension 07/14/2023 Last Documented On 4 10:42AM ; [facility], [facility] Review of Systems Includes: Review of Systems from this encounter Systemic: Not feeling tired, no recent weight loss, and no recent weight gain. Head: Headache. No sinus pain. Eyes: No vision problems. Cataracts and Glasses/Contacts. No Glaucoma. Otolaryngeal: No hearing loss. Tinnitus. Cardiovascular: No chest pain or discomfort and no palpitations. Hypertension. No High Cholesterol. Pulmonary: No daytime asthma symptoms and no chronic cough. No wheezing. Gastrointestinal: No heartburn and no abdominal pain. No Indigestion, no Acid Reflux, no Peptic Ulcer, no GI Stomach Bleed, and no Ulcers. Endocrine: No hot flashes, no muscle weakness, no Diabetes, no Hypothyroid, and no Hyperthyroid. Hematologic: No easy bleeding, no tendency for easy bruising, and no Anemia. Musculoskeletal: Arthritis. No lower back pain. Soft tissue swelling. No localized joint pain. Neurological: No dizziness, no convulsions, and no numbness. Psychological: No anxiety, no emotional lability, and no depression. Insomnia. Not crying for no reason. Skin: No dry skin. No Ulcers, no Scars, and no rash. Allergic and Immunologic: No complaint of seasonal allergic reaction. Mental Status Includes: Mental Status from this encounter Description No anxiety Functional Status Includes: Functional Status from this encounter No Functional Status Recorded Physical Exam Includes: Physical Exam from this encounter Allergies Includes: Active Allergies No Known Allergies Encounters Encounter Provider Location Date Check-In Time Check-Out Time Diagnosis Follow Up Wilder Smith PA-C [facility] 4 10:04AM 10:30AM Overweight Insurance Includes: Active Insurance Policies Plan Name Member ID Group # Subscriber Relationship Effect melvin Dates 1 - [employer] [id number] Nicole Ochoa Self Clinical Notes Includes: Clinical Notes from this encounter * Progress note Date Encounter Last Documented by 07/14/2023 Follow Up Last documented on 07/14/2023; 10:42 AM, Wilder Francisco; [facility], [facility] Active Problems & Conditions - Neck Pain Chief Complaint The Chief Complaint is: Stiff neck. Referred Here Referred by Self. History of Present Illness Nicole Ochao is a 63 year old female. - Symptoms Grinding and popping Sitting up straight makes pain better Looking down makes pain worse. - Allergy list reviewed - Problem list reviewed - Medication list reviewed - Previous history of new onset pain Injury is not work related or an automotive accident - Patient pain level from 1-10: 3 - History of Home Exercise - No previous treatment. - - Review of medications documented Medications used for this condition: Follow up of her cervical spine MRI. She has been dealing with the neck pain that started August 2022 no specific injury she does feel better when she is on anti-inflammatories. She not describing any radicular symptoms with this however. When she states that she coughs she does get this pain across the left side of her face and some associated ear and jaw pain with it and does feel like her eyes when it popped out the back of her head. No bowel or bladder issues with this. No previous neck surgery. Current Medication - Aspirin 81 MG Oral Tablet Delayed Release once a day 0 days, 0 refills - Atorvastatin Calcium 20 MG Oral Tablet 90 days, 0 refills - Centrum Silver 50+Women Oral Tablet 0 days, 0 refills - Cyclobenzaprine HCl 10 MG Oral Tablet 30 days, 0 refills - Daily Multivitamin Oral Capsule once a day 0 days, 0 refills - Lisinopril 20 MG Oral Tablet 90 days, 0 refills - Meloxicam 15 MG Oral Tablet 30 days, 0 refills - Naproxen 500 MG Oral Tablet 15 days, 0 refills - Polymyxin B-Trimethoprim 10886-1.1 UNIT/ML-% Ophthalmic Solution 16 days, 0 refills Past Medical/Surgical History Diagnoses: History of Cancer Hypertension Surgical: - Past Surgical History: 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 Harmony teeth Tubal ligation Social History Yes, current smoker. Current diet: No recent change in diet. Caffeine use: Caffeine use. Tobacco use: Tobacco use. Alcohol: Alcohol use. Drug Use: Not using drugs. Habits: Not exercising regularly. Allergies - No Known Allergies Family History Cancer Systemic hypertension Review Of Systems Systemic: Not feeling tired, no recent weight loss, and no recent weight gain. Head: Headache. No sinus pain. Eyes: No vision problems. Cataracts and Glasses/Contacts. No Glaucoma. Otolaryngeal: No hearing loss. Tinnitus. Cardiovascular: No chest pain or discomfort and no palpitations. Hypertension. No High Cholesterol. Pulmonary: No daytime asthma symptoms and no chronic cough. No wheezing. Gastrointestinal: No heartburn and no abdominal pain. No Indigestion, no Acid Reflux, no Peptic Ulcer, no GI Stomach Bleed, and no Ulcers. Endocrine: No hot flashes, no muscle weakness, no Diabetes, no Hypothyroid, and no Hyperthyroid. Hematologic: No easy bleeding, no tendency for easy bruising, and no Anemia. Musculoskeletal: Arthritis. No lower back pain. Soft tissue swelling. No localized joint pain. Neurological: No dizziness, no convulsions, and no numbness. Psychological: No anxiety, no emotional lability, and no depression. Insomnia. Not crying for no reason. Skin: No dry skin. No Ulcers, no Scars, and no rash. Allergic and Immunologic: No complaint of seasonal allergic reaction. Physical Findings - Vitals taken 07/14/2023 10:08 am lc Height 64 in Weight 195 lbs Body Mass Index 33.5 kg/m2 Body Surface Area 1.9 m2 Pain Level 1 She is pleasant alert and oriented x3 She has full cervical motion She has 5/5 biceps triceps deltoids wrist extension and flexion strengt Does have a positive Hernandez's today mildly on the right negative on the left 2+ patellar reflexes bilaterally Tests CT scan of the cervical spine shows degenerative changes at C5-C6 outside facility MRI of the cervical spine shows degenerative changes at C5-C6 maybe some foraminal narrowing mild stenosis centrally. There also is a abnormality at the C1-C2 possibly this may just be a vessel. Radiologist did not comment on that. Do not see any cervical cord compression. Assessment - Overweight C5-C6 DDD Possible lesion seen on T2 possibly causing some trigeminal neuralgia Previous Tests Imaging: Intravascular Ultrasound (Coronary Vessel/Graft): An X-ray was performed. Available previous imaging studies were reviewed Available previous history reviewed Therapy - Intervention and counseling on cessation of tobacco use. Counseling/Education - Tobacco use - Use of tobacco assessment performed - Intervention and counseling on cessation of tobacco use - Lose weight Plan StartCited - Tobacco abuse counseling Therapy/Physical Therapy: Cervical Instructions: See PT order attached EndCited - Patient screened for future fall risk: documentation of any fall with injury in past year Fall Risk Assessment: This patient has been identified as a fall risk. Balance/gait along with postural blood pressure, vision and home fall hazards have been assessed. Medications have been reviewed, and recommendations made with regard to contributing factors for future falls. Plan of care: Consideration of vitamin D supplementation along with balance and strength training with consideration for formal physical therapy has been discussed with the patient. Patient was seen by myself Wilder Smith PA-C. Patient will follow up with Dr. Kilpatrick in 1 month for her neck we are going to do some physical therapy to start that also going to refer her to Neurology to evaluate this lesion denies see at C1-C2 but not commented on by the radiologist. This may or may not be causing some facial symptoms that she is having when she is coughing were causing possibly a trigeminal neuralgia Notes This dictation was done with voice recognition software and may contain errors and omissions. Practice Management Use of tobacco assessment performed and patient screened for future fall risk documentation of any fall with injury in past year Review of medications documented. Care Team - KB BLACK
--- OUTSIDE RECORDS SUMMARY | 2024-06-20 13:34 | XMS_ITS ---
Author Organization [facility] , [facility] Address [address] [place] [address] Phone Care Team Providers Care Kiln Puller Name Role Phone ANNIA BLACKE Unavailable [phone] Noe Kilpatrick MD Unavailable [phone] Problems Includes: Active, inactive, and resolved Problems All Visits Onset Date Resolved Date Provider Condition S tatus Neck Pain 07/05/2023 Wilder Smith PA-C Active Last Documented On 4 11:06AM ; [facility], [facility] Plan of Treatment Findings Encounter Date Patient screened for future fall risk: documentation of any fall with injury in past year Follow Up with Wilder Smith PA-C 07/14/2023 Last Documented On 4 10:42AM ; [facility], [facility] Pending Tests Order Diagnosis Results Due Ordering P rovider Radiology - MRI MRI Cervical Spine Cervicalgia 07/19/23 Wilder Smith PA-C Last Documented On 4 1:28PM ; [facility], [facility] Instructions to patient Intervention and counseling on cessation of tobacco use Last Documented On 4 10:05AM ; [facility], [facility] Intervention and counseling on cessation of tobacco use Last Documented On 4 10:09AM ; [facility] Lose weight Last Documented On 4 10:05AM ; [facility] Intervention and counseling on cessation of tobacco use Last Documented On 4 11:01AM ; [facility] Lose weight Last Documented On 4 10:57AM ; [facility], [facility] Assessments Includes: Assessments for all patient encounters Findings Encounter Date Overweight Follow Up with Wilder Francisco 07/14/2023 Last Documented On 4 10:42AM ; [facility] Overweight Non Physician Specified with Jaiden Smith PA-C 07/05/2023 Last Documented On 4 1:28PM ; [facility] Instructions Includes: Instructions for all patient encounters Instructions to patient Intervention and counseling on cessation of tobacco use Last Documented On 4 10:05AM ; [facility] Intervention and counseling on cessation of tobacco use Last Documented On 4 10:09AM ; [facility] Lose weight Last Documented On 4 10:05AM ; [facility] Intervention and counseling on cessation of tobacco use Last Documented On 4 11:01AM ; [facility] Lose weight Last Documented On 4 10:57AM ; [facility], [facility] Medical Equipment - Implanted Devices Includes: Current and historical Devices No Medical Equipment Recorded Medications Includes: Current and historical Medications Current Medications (continue as prescribed) Aspirin 81 MG Oral Tablet Delayed Release 07/05/2023 Provider: Diagnosis: Last Documented On 4 11:00AM By Jennifer Archibald ; [facility], [facility] Daily Multivitamin Oral Capsule 07/05/2023 Provider: Diagnosis: Last Documented On 4 11:00AM By Jennifer Archibald ; [facility], [facility] Centrum Silver 50+Women Oral Tablet 07/05/2023 Provi isabelle: Diagnosis: Last Documented On 4 11:07AM By Sandra Loza ; [facility], [facility] Atorvastatin Calcium 20 MG Oral Tablet 05/21/2023 Pr ovider: KB BLACK Diagnosis: Last Documented On 4 11:06AM By Sandra Loza ; [facility], [facility] Lisinopril 20 MG Oral Tablet 05/21/2023 Provider: KB BLACK Diagnosis: Last Documented On 4 11:06AM By Sandra Loza ; [facility], [facility] Meloxicam 15 MG Oral Tablet 05/21/2023 Provider: KB BLACK Diagnosis: Last Documented On 4 11:06AM By Sandra Loza ; [facility], [facility] Naproxen 500 MG Oral Tablet 04/16/2023 Provider: KB BLACK Diagnosis: Last Documented On 4 11:06AM By Sandra Loza ; [facility], [facility] Cyclobenzaprine HCl 10 MG Oral Tablet 04/16/2023 Pro vider: KB BLACK Diagnosis: Last Documented On 4 11:06AM By Sandra Loza ; [facility] Polymyxin B-Trimethoprim 100 00-0.1 UNIT/ML-% Ophthalmic Solution 03/30/2023 Provider: Diagnosis: Last Documented On 4 11:06AM By Sandra Loza ; [facility], [facility] Past Medications on file Atorvastatin Calcium 20 MG O ral Tablet 05/21/2023 - 07/05/2023 Provider: KB BLACK Diagnosis: Last Documented On 4 11:06AM By Sandra Loza ; [facility], [facility] Lisinopril 20 MG Oral Tablet 05/21/2023 - 07/05/2023 P rovider: KB BLACK Diagnosis: Last Documented On 4 11:06AM By Sandra Loza ; [facility], [facility] Meloxicam 15 MG Oral Tablet 05/21/2023 - 07/05/2023 Pr ovider: KB BLACK Diagnosis: Last Documented On 4 11:06AM By Sandra Loza ; [facility], [facility] Cyclobenzaprine HCl 10 MG Or al Tablet 04/16/2023 - 05/15/2023 Provider: BK BLACK Diagnosis: Last Documented On 4 11:00AM By Jennifer Archibald ; [facility] Naproxen 500 MG Oral Tablet 04/16/2023 - 05/01/2023 Pr ovider: KB WAYNE Diagnosis: Last Documented On 4 11:00AM By Jennifer Archibald ; [facility], [facility] Polymyxin B-Trimethoprim 100 00-0.1 UNIT/ML-% Ophthalmic Solution 03/30/2023 - 04/30/2023 Provider: Diagnosis: Last Documented On 4 11:00AM By Jennifer Archibald ; [facility], [facility] Medications Administered Includes: Administered Medications in patient's chart No Administered Medications Recorded Vital Signs Includes: Vital Signs from 06/21/2023 through 06/20/2024 Vital Name 07/14/2023 10:08A 07/05/2023 10: 59A Height (in) 64 64 Weight (lb) 195 195 Body Mass Index 33.5 33.5 Body Surface Area 1.9 1.9 Pain Level 1 Note: [facility] Last Documented: On 07/14/2023 10:08A M ; [facility] On 07/05/2023 10:59AM ; [facility] Results Includes: Results from 06/21/2023 through 06/20/2024 No Results Recorded For Specified Dates History of Present Illness History of Present Illness not supported for this document type No History of Present Illness Recorded Social History Description Last Updated Tobacco use 07/05/2023 Last Documented On 4 1:28PM ; [facility] Alcohol use 07/05/2023 Last Documented On 4 1:28PM ; [facility] Caffeine use 07/05/2023 Last Documented On 4 1:28PM ; [facility] Yes, current smoker. 07/05/2023 Last Documented On 4 1:28PM ; [facility] No recent change in diet 07/05/2023 Last Documented On 4 1:28PM ; [facility] Not exercising regularly 07/05/2023 Last Documented On 4 1:28PM ; [facility] Not using drugs 07/05/2023 Last Documented On 4 1:28PM ; [facility] Smoking Status Unknown Procedures and Surgical History Includes: Procedures from 06/21/2023 through 06/20/2024 Procedures Code Diagnosis Performing Provider Service Location Service Date MRI NECK SPINE W/O DYE 47823 Cervicalgia Noe Kilpatrick MD [facility] 07/13/2023 Last Documented On 4 5:22AM ; [facility] Surgical History Last Updated Past Surgical History: 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 ~[place] teeth ~Tubal ligation 07/05/2023 Last Documented On 4 1:28PM ; [facility] Medical History Includes: Medical History in patient's chart Description Last Updated History of History of Cancer 07/05/2023 Last Documented On 4 1:28PM ; [facility] History of Hypertension 07/05/2023 Last Documented On 4 1:28PM ; [facility] Family History Includes: Family History in patient's chart Description Last Updated Family history of cancer 07/05/2023 Last Documented On 4 1:28PM ; [facility] Family history of systemic hypertension 07/05/2023 Last Documented On 4 1:28PM ; [facility] Review of Systems Review of Systems not supported for this document type No Review of Systems Recorded Mental Status Description No anxiety Functional Status No Functional Status Recorded Physical Exam Physical Exam not supported for this document type No Physical Exam Recorded Allergies Includes: Active, inactive, and resolved Allergies No Known Allergies Encounters Includes: Encounters from 06/21/2023 through 06/20/2024 Encounter Provider Location Date Check-In Time Check-Out Time Diagnosis Follow Up Wilder Smith PA-C [facility] 07/14/19 24 10:04AM 10:30AM Overweight MRI [facility] 07/13/19 24 7:43AM 8:35AM Non Physician Specified Wilder Smith PA-C [facility] 07/05/19 24 10:55AM 11:21AM Overweight Insurance Includes: Active Insurance Policies Plan Name Member ID Group # Subscriber Relationship Effect melvin Dates - [employer] [id number] Nicole Ochoa Self Clinical Notes Includes: Signed Clinical Notes starting from 02/19/2022 * Progress note Date Encounter Last Documented by 07/14/2023 Follow Up Last documented on 07/14/2023; 10:42 AM, Wilder Francisco; [facility] Active Problems & Conditions - Neck Pain Chief Complaint The Chief Complaint is: Stiff neck. Referred Here Referred by Self. History of Present Illness Nicole Ochoa is a 63 year old [...] 15 days, 0 refills - Polymyxin B-Trimethoprim 26174-7.1 UNIT/ML-% Ophthalmic Solution 16 days, 0 refills Past Medical/Surgical History Diagnoses: History of Cancer Hypertension Surgical: - Past Surgical History: 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 [place] teeth Tubal ligation Social History Yes, current [...] medications documented. Care Team - KB BLACK * Progress note Date Encounter Last Documented by 07/05/2023 Non Physician Specified Last doc umented on 07/14/2023; 1:28 PM, Wilder Smith PA-C; [facility], [facility] Active Problems & Conditions - Neck Pain Chief Complaint The Chief Complaint is: Stiff neck. Referred Here Referred by Self. History of Present Illness Nicole Ochoa is a 63 year old [...] of Home Exercise - No previous treatment. Medications used for this condition: Patient is here today complaints of neck pain that started last August 2022 with no specific injury since being on meloxicam over last month it has been feeling better. She has not describing any radicular symptoms but does feel that her neck will tense up in sometimes she feels that she gets some left-sided ear pain in her jaw ache in feels when she goes to cough or eyes we will pop out rates her pain 10/10 no balance issues no bowel or bladder issues with this. She has had CT scan of her neck. 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 Physical Findings - Vitals taken 07/05/2023 10:59 am LC Height 64 in Weight 195 lbs Body Mass Index 33.5 kg/m2 Body Surface Area 1.9 m2 She is pleasant alert and oriented x3 She has full cervical motion She has 5/5 biceps triceps deltoids wrist extension and flexion strength Positive Meche's bilaterally negative radial reflex bilaterally Tests CT scan of the cervical spine shows degenerative changes at C5-C6 outside facility Assessment - Overweight C5-C6 DDD possible myelopathy Previous Tests Imaging: Intravascular Ultrasound (Coronary Vessel/Graft): An X-ray was performed. Available previous imaging studies were reviewed Available previous history reviewed Therapy - Intervention and counseling on cessation of tobacco use. Counseling/Education - Lose weight Plan StartCited - Cervicalgia Radiology/MRI: MRI Cervical Spine Instructions: MRI CSPINE EndCited Fall Risk Assessment: This patient has been [...] Wilder Smith PA-C. Patient will follow up cervical spine MRI. Notes This dictation was done with voice recognition software and may contain errors and omissions. Practice Management Use of tobacco assessment performed and patient screened for future fall risk documentation of any fall with injury in past year Review of medications documented. Care Team - KB BLACK
--- OUTSIDE RECORDS SUMMARY | 2024-06-20 13:34 | XMS_ITS ---
Care Plan - [facility], [facility] Created on: June 20, 2024 Nicole Ochoa : 1960 Sex: Female Author Organization [facility] , [facility] Address [address] [place] [address] Phone Care Team Providers Care Senior Compensation Analyst Name Role Phone KB BLACK Unavailable [phone] Noe Kilpatrick MD Unavailable [phone]
--- OUTSIDE RECORDS SUMMARY | 2024-06-20 13:34 | XMS_ITS | Clinical Summary ---
Author Organization [facility] , [facility] Address [address] [place] [address] Phone Care Team Providers Care Production Maintenance Mechanic Name Role Phone KB BLACK Unavailable [phone] oNe Kilpatrick MD Unavailable [phone] Reason for Visit and Chief Complaint MRI Problems Includes: Problems addressed during this encounter and other active Problems All Visits Onset Date Resolved Date Provider Condition S tatus Neck Pain 07/05/2023 Wilder Smith PA-C Active Last Documented On 4 11:06AM ; [facility], [facility] Plan of Treatment No Plan of Treatment Recorded Assessments Includes: Assessments from this encounter No Assessments Recorded Medical Equipment - Implanted Devices Includes: Current Devices No Medical Equipment Recorded Medications Includes: Medications discussed during this encounter and other current Medications Current Medications (continue as prescribed) Aspirin 81 MG Oral Tablet Delayed Release 07/05/2023 Provider: Diagnosis: Last Documented On 4 11:00AM By Jennifer Haynes [facility], [facility] Daily Multivitamin Oral Capsule 07/05/2023 Provider: Diagnosis: Last Documented On 4 11:00AM By Jennifer Haynes [facility], [facility] Centrum Silver 50+Women Oral Tablet 07/05/2023 Provi iasbelle: Diagnosis: Last Documented On 4 11:07AM By Sandra Haynes [facility], [facility] Atorvastatin Calcium 20 MG Oral Tablet 05/21/2023 Pr ovider: KB BLACK Diagnosis: Last Documented On 4 11:06AM By Sandra Loza ; [facility], [facility] Lisinopril 20 MG Oral Tablet 05/21/2023 Provider: KB BLACK Diagnosis: Last Documented On 4 11:06AM By Sandra Haynes [facility] Meloxicam 15 MG Oral Tablet 05/21/2023 Provider: KBMichael BLACK Diagnosis: Last Documented On 4 11:06AM By Sandra Loza ; [facility] Naproxen 500 MG Oral Tablet 04/16/2023 Provider: KB WAYNE Diagnosis: Last Documented On 4 11:06AM By Sandra Loza ; [facility] Cyclobenzaprine HCl 10 MG Oral Tablet 04/16/2023 Pro vider: KB BLACK Diagnosis: Last Documented On 4 11:06AM By Sandra Loza ; [facility] Polymyxin B-Trimethoprim 100 00-0.1 UNIT/ML-% Ophthalmic Solution 03/30/2023 Provider: Diagnosis: Last Documented On 4 11:06AM By Sandra Loza ; [facility] Medications Administered Includes: Administered Medications from this encounter No Administered Medications Recorded Results Includes: Results discussed during this encounter No Results Recorded For Specified Dates History of Present Illness Includes: History of Present Illness from this encounter No History of Present Illness Recorded Social History No Social History Recorded - Smoking Status Unknown Procedures and Surgical History Includes: Procedures from this encounter Procedures Code Diagnosis Performing Provider Service Location Service Date MRI NECK SPINE W/O DYE 42098 Cervicalgia Noe Kilpatrick MD [facility] 07/13/2023 Last Documented On 4 5:22AM ; [facility] Medical History Includes: Medical History addressed during this encounter No Medical History Recorded Family History Includes: Family History addressed during this encounter No Family History Recorded Review of Systems Includes: Review of Systems from this encounter No Review of Systems Recorded Mental Status Includes: Mental Status from this encounter No Mental Status Recorded Functional Status Includes: Functional Status from this encounter No Functional Status Recorded Physical Exam Includes: Physical Exam from this encounter No Physical Exam Recorded Allergies Includes: Active Allergies No Known Allergies Encounters Encounter Provider Location Date Check-In Time Check-Out Time Diagnosis MRI [facility] 07/13/2023 7:43AM 8:35AM Insurance Includes: Active Insurance Policies Plan Name Member ID Group # Subscriber Relationship Effect melvin Dates - [employer] [id number] Nicole Ochoa Self Clinical Notes Includes: Clinical Notes from this encounter No Clinical Notes Recorded
--- OUTSIDE RECORDS SUMMARY | 2024-06-20 13:34 | XMS_ITS | Clinical Summary ---
Author Organization [facility] , [facility] Address [address] [place] [address] Phone Care Team Providers Care Service Order Clerk Name Role Phone KB BLACK Unavailable [phone] Noe Kilpatrick MD Unavailable [phone] Reason for Visit and Chief Complaint The Chief Complaint is: Stiff neck Problems Includes: Problems addressed during this encounter and other active Problems Current Visit Onset Date Resolved Date Provider Pallavi hi Status Neck Pain 07/05/2023 Wilder Smith PA-C Active Last Documented On 4 11:06AM ; [facility] Plan of Treatment Fall Risk Assessment: This patient has been [...] the patient. - Last Documented On 07/14/2023 1:28PM ; [facility] Patient was seen by myself Wilder Smith PA-C. Patient will follow up cervical spine MRI. - Last Documented On 07/14/2023 1:28PM ; [facility] Pending Tests Order Diagnosis Results Due Ordering P rovider Radiology - MRI MRI Cervical Spine Cervicalgia 07/19/23 Wilder Smith PA-C Last Documented On 4 1:28PM ; [facility] Instructions to patient Intervention and counseling on cessation of tobacco use Last Documented On 4 11:01AM ; [facility] Lose weight Last Documented On 4 10:57AM ; [facility] Assessments Includes: Assessments from this encounter Findings - Overweight - Last Documented On 07/14/2023 1:28PM ; [facility], [facility] C5-C6 DDD possible myelopathy - Last Documented On 07/14/2023 1:28PM ; [facility], [facility] Instructions Includes: Instructions from this encounter Instructions to patient Intervention and counseling on cessation of tobacco use Last Documented On 4 11:01AM ; [facility], [facility] Lose weight Last Documented On 4 10:57AM ; [facility], [facility] Medical Equipment - Implanted Devices Includes: Current Devices No Medical Equipment Recorded Medications Includes: Medications discussed during this encounter and other current Medications Discontinued / Stopped on this date KB BLACK on 05/21/2023 Atorvastatin Calcium 20 MG Oral Tablet Pr ovider: KB BLACK Diagnosis: Last Documented On 4 11:06AM By Sandra Loza ; [facility], [facility] Lisinopril 20 MG Oral Tablet Provider: KB BLACK Diagnosis: Last Documented On 4 11:06AM By Sandra Loza ; [facility], [facility] Meloxicam 15 MG Oral Tablet Provider: KB BLACK Diagnosis: Last Documented On 4 11:06AM By Sandra Loza ; [facility], [facility] Current Medications (continue as prescribed) Aspirin 81 MG Oral Tablet Delayed Release 07/05/2023 Provider: Diagnosis: Last Documented On 4 11:00AM By Jennifer Archibald ; [facility], [facility] Daily Multivitamin Oral Capsule 07/05/2023 Provider: Diagnosis: Last Documented On 4 11:00AM By Jennifer Archibald ; [facility], [facility] Centrum Silver 50+Women Oral Tablet 07/05/2023 Provi isabelle: Diagnosis: Last Documented On 4 11:07AM By Sandra Loza ; [facility], [facility] Atorvastatin Calcium 20 MG Oral Tablet 05/21/2023 Pr ovider: KB BLACK Diagnosis: Last Documented On 4 11:06AM By Sandra Loza ; [facility], [facility] Lisinopril 20 MG Oral Tablet 05/21/2023 Provider: KB BLACK Diagnosis: Last Documented On 4 11:06AM By Sandra Loza ; [facility], [facility] Meloxicam 15 MG Oral Tablet 05/21/2023 Provider: KB BLACK Diagnosis: Last Documented On 4 11:06AM By Sandra Loza ; [facility], [facility] Naproxen 500 MG Oral Tablet 04/16/2023 Provider: KB BLACK Diagnosis: Last Documented On 4 11:06AM By Sandra Loza ; [facility], [facility] Cyclobenzaprine HCl 10 MG Oral Tablet 04/16/2023 Pro vider: KB WAYNE Diagnosis: Last Documented On 4 11:06AM By Sandra Loza ; [facility], [facility] Polymyxin B-Trimethoprim 100 00-0.1 UNIT/ML-% Ophthalmic Solution 03/30/2023 Provider: Diagnosis: Last Documented On 4 11:06AM By Sandra Loza ; [facility], [facility] Medications Administered Includes: Administered Medications from this encounter No Administered Medications Recorded Vital Signs Includes: Vital Signs from this encounter Vital Name 07/05/2023 10:59A Height (in) 64 Weight (lb) 195 Body Mass Index 33.5 Body Surface Area 1.9 Note: LC Last Documented: On 07/05/2023 10:59A M ; [facility], [facility] Results Includes: Results discussed during this encounter No Results Recorded For Specified Dates History of Present Illness Includes: History of Present Illness from this encounter ISAC Ochoa is a 63 year old female. [...] has had CT scan of her neck. Social History Description Last Updated Tobacco use 07/05/2023 Last Documented On 4 1:28PM ; [facility], [facility] Alcohol use 07/05/2023 Last Documented On 4 1:28PM ; [facility] Caffeine use 07/05/2023 Last Documented On 4 1:28PM ; [facility] Yes, current smoker. 07/05/2023 Last Documented On 4 1:28PM ; [facility] No recent change in diet 07/05/2023 Last Documented On 4 1:28PM ; [facility] Not exercising regularly 07/05/2023 Last Documented On 4 1:28PM ; [facility] Not using drugs 07/05/2023 Last Documented On 4 1:28PM ; [facility] Smoking Status Unknown Procedures and Surgical History Includes: Procedures from this encounter Procedures Code Diagnosis Performing Provider Service L ocation Service Date intervention and counseling on cessation of tobacco use 4000F Last Documented On 4 11:01AM ; [facility] use of tobacco assessment performed 1000F Last Documented On 10:57AM ; [facility] patient screened for future fall risk: documentation of any fall with injury in past year 1100F Last Documented On 10:57AM ; [facility] review of medications documented 1160F Last Documented On 4 10:57AM ; [facility] an X-ray was performed 43017 Last Documented On 4 10:57AM ; [facility] Surgical History Last Updated Past Surgical History: 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 ~[place] teeth ~Tubal ligation 07/05/2023 Last Documented On 4 1:28PM ; [facility] Medical History Includes: Medical History addressed during this encounter Description Last Updated History of History of Cancer 07/05/2023 Last Documented On 4 1:28PM ; [facility] History of Hypertension 07/05/2023 Last Documented On 4 1:28PM ; [facility] Family History Includes: Family History addressed during this encounter Description Last Updated Family history of cancer 07/05/2023 Last Documented On 4 1:28PM ; [facility] Family history of systemic hypertension 07/05/2023 Last Documented On 4 1:28PM ; [facility] Review of Systems Includes: Review of [...] Location Date Check-In Time Check-Out Time Diagnosis Non Physician Specified Wilder Smith PA-C [facility] 07/05/19 24 10:55AM 11:21AM Overweight Insurance Includes: Active Insurance Policies Plan Name Member ID Group # Subscriber Relationship Effect melvin Dates 1 - [employer] [id number] Nicole Ochoa Self Clinical Notes Includes: Clinical Notes from this encounter * Progress note Date Encounter Last Documented by 07/05/2023 Non Physician Specified Last doc umented on 07/14/2023; 1:28 PM, Wilder Smith PA-C; [facility], [facility] Active Problems & Conditions - Neck [...] 15 days, 0 refills - Polymyxin B-Trimethoprim 43991-0.1 UNIT/ML-% Ophthalmic Solution 16 days, 0 refills Past Medical/Surgical History Diagnoses: History of Cancer Hypertension Surgical: - Past Surgical History: 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 [place] teeth Tubal ligation Social History Yes, current [...]
[2024-06-20 13:35] LABS: Microscopic, Urine URINE MICROSCOPIC (MICROSCOPIC)
[2024-06-20 14:22] LABS: Basophils # 0.1 K/mm3 (0-0.2); Basophils % 0.6 % (0.1-2.0); Eosinophils # 0.2 K/mm3 (0.0-0.4); Eosinophils % 2.2 % (0.1-12.0); Hematocrit 44.6 % (37.0-47.0); Hemoglobin 14.4 g/dL (12.2-16.2); Lymphocytes % 34.5 % (10-50); Mean Corpuscular HGB Conc 32.3 g/dL (31.8-35.4); Mean Corpuscular Hemoglobin 30.5 pg (27.0-31.2); Mean Corpuscular Volume 94.5 fl (81-99); Mean Platelet Volume 12.1 fl (7.4-10.4); Monocytes # 0.5 K/mm3 (0.1-1.0); Monocytes % 5.8 % (1.7-9.3); Neutrophils # 4.9 K/mm3 (1.8-7.8); Neutrophils % 56.7 % (37.0-80.0); Nucleated Red Blood Cells # 0 10^3/uL; Nucleated Red Blood Cells % 0 %; Platelet Count 166 K/mm3 (142-424); Red Blood Count 4.72 M/mm3 (4.20-5.40); Red Cell Distribution Width 14.3 % (11.5-17.5); Red Cell Distribution Width-SD 50.1 fL; White Blood Count 8.6 K/mm3 (4.8-10.8)
[2024-06-20 14:36] LABS: Appearance,Urine CLEAR (Clear); Bilirubin,Urine Negative (Negative); Blood, Urine Negative (Negative); Color,Urine YELLOW (Yellow); Glucose,Urine (UA) Negative (Negative); Ketones,Urine Negative (Negative); Leukocyte Esterase,Urine Negative (Negative); Nitrate,Urine Negative (Negative); PH,Urine 6.5 (5.0-8.5); Protein,Urine Negative (Negative); Urobilinogen,Urine 0.2 EU/dl (0.2)
[2024-06-20 14:58] LABS: Bacteria,Urine 1+ /lpf; Squamous Epithelial Cell,Urine Occasional #/hpf (0-5); WBC,Urine Occasional #/hpf (0-3)
[2024-06-20 15:33] LABS: Alanine Aminotransferase 35 U/L (12-78); Albumin Level 4.3 g/dl (3.5-5.0); Albumin/Globulin Ratio 1.5 (1.1-1.8); Alkaline Phosphatase 90 U/L (38-126); Anion Gap 12.2 mEq/L (5-15); Aspartate Amino Transferase 37 U/L (14-36); Bilirubin,Total 0.9 mg/dl (0.2-1.3); Blood Urea Nitrogen 18 mg/dl (7-17); Carbon Dioxide 29 mmol/L (22.0-30.0); Chloride 102 mmol/L (98-107); Chol/HDL Ratio 3.7 (1-3.5); Cholesterol 172 mg/dl (140-200); Estimated Glomerular Filt Rate 72 ml/min (>60); GFR (African American) 87 ML/MIN (>60); Globulin 2.9 g/dL (1.3-3.2); Glucose 100 mg/dl (74-100); HDL Cholesterol 47 mg/dl (40-60); Potassium 4.2 mmoL/L (3.5-5.1); Sodium 139 mmol/L (136-145); Total Protein,Serum 7.2 g/dl (6.3-8.2); Triglycerides 181 mg/dl (30-150); VLDL Cholesterol 36 mg/dL (0-40)
[2024-06-20 15:46] LABS: Direct LDL Cholesterol 80.86 mg/dL (100-129)
[2024-06-20 15:49] LABS: 25-OH Vitamin D, Total 34.1 ng/mL (30-100)
[2024-06-20 15:50] LABS: Free T4 (Free Thyroxine) 0.99 ng/dl (0.78-2.19)
[2024-06-20 16:05] LABS: Thyroid Stimulating Hormone 1.41 uIU/mL (0.465-4.68)
[2024-06-20 16:10] LABS: Iron 83 ug/dL (37-170)
[2024-06-20 16:18] LABS: HIV Combo NEGATIVE (Negative)
[2024-06-20 16:20] LABS: Total Iron Binding Capacity 294 ug/dL (265-497)
[2024-06-20 16:24] LABS: Vitamin B12 494 pg/mL (239-931)
[2024-06-20 16:29] LABS: Hepatitis C Ab Qual. W/ RFX NEGATIVE (Negative)
[2024-06-20 16:46] LABS: Ferritin 491 ng/ml (11.1-264)
[2024-06-20 17:09] LABS: Hemoglobin A1C 6.8 % (4.0-6.0)
== END 2024-06-20 23:59 | disposition home or self-care (01) ==
LOC: LAB 13:32
PROVIDERS: PCP Nurse Practitioner Family; Visit Provider Nurse Practitioner Family
DX: Z11.4 Encounter for screening for human immunodeficiency virus [HIV] (principal); R79.89 Other specified abnormal findings of blood chemistry; E11.9 Type 2 diabetes mellitus without complications; Z68.33 Body mass index [BMI] 33.0-33.9, adult; Z13.21 Encounter for screening for nutritional disorder; Z11.59 Encounter for screening for other viral diseases; R53.83 Other fatigue; I10 Essential (primary) hypertension; E78.5 Hyperlipidemia, unspecified; Z87.891 Personal history of nicotine dependence; E66.9 Obesity, unspecified
CPT/HCPCS: 36415; 80053; 80061; 81001; 82306; 82607; 82728; 83036; 83540; 83550; 84156; 84439; 84443; 85025; 86803; 87077; 87086; 87389

== ENCOUNTER 2024-08-15 07:43 | Outpatient (CLI) | payer MEDICARE, SELFPAY ==
--- OUTSIDE RECORDS SUMMARY | 2024-08-15 07:45 | XMS_ITS | Clinical Summary ---
Author Organization [facility] Address [address] [place] [address] Care Team Providers Care Knitter Hand Name Role Phone Sharif Jalloh MD Primary Care Provider [phone] Social History Tobacco Use Types Packs/Day Years Used Date Smoking Tobacco: Every Day Alcohol Use Standard Drinks/Week Comments Yes 0 (1 standard drink = 0.6 oz pur e alcohol) Comments Unknown Sex and Gender Information Value Date Recorded Sex Assigned at Not on file Legal Sex Female 7:40 PM EDT Gender Identity Not on file Sexual Orientation Not on file Last Filed Vital Signs Vital Sign Reading Time Taken Comments Blood Pressure - - Pulse - - Temperature - - Respiratory Rate - - Oxygen Saturation - - Inhaled Oxygen Concentration - - Weight 82.6 kg (182 lb 0.2 oz) 06/01/2016 1:33 P M EDT Height 180.3 cm (5' 11 ) 06/01/2016 1:33 PM EDT Body Mass Index 25.39 06/01/2016 1:33 PM EDT Plan of Treatment Not on file Care Teams Knitter Hand Relationship Specialty Start Date End Date Sharif Jalloh MD [address] [place] [address] PCP - General 07/19/20
--- NOTE | 2024-08-15 08:00 | US_ITS ---
FINAL REPORT CLINICAL HISTORY: elevated LFTs FINDINGS: Sonographic images of the right upper quadrant were obtained. The pancreas is partially obscured. The liver is fatty infiltrated. There is a trace amount of sludge in the gallbladder. No discrete gallstone is seen. There is no evidence of biliary ductal dilatation.The common duct measures 4mm. Limited images of the right kidney are unremarkable. IMPRESSION: Trace sludge in the gallbladder. Fatty infiltration of the liver. Reviewed, Interpreted and Dictated by Boyd Pires MD Transcribed by Kristina Sylvester Authenticated and [facility]
[2024-08-15 09:06] LABS: Albumin Level 4.2 g/dl (3.5-5.0); Chloride 108 mmol/L (98-107); Sodium 141 mmol/L (136-145)
[2024-08-15 09:07] LABS: Potassium 4.3 mmoL/L (3.5-5.1)
[2024-08-15 09:09] LABS: Alanine Aminotransferase 33 U/L (12-78); Albumin/Globulin Ratio 1.9 (1.1-1.8); Alkaline Phosphatase 80 U/L (38-126); Anion Gap 7.3 mEq/L (5-15); Aspartate Amino Transferase 32 U/L (14-36); Bilirubin,Total 0.6 mg/dl (0.2-1.3); Blood Urea Nitrogen 22 mg/dl (7-17); Calcium 9.5 mg/dl (8.4-10.2); Carbon Dioxide 30 mmol/L (22.0-30.0); Chol/HDL Ratio 3.7 (1-3.5); Cholesterol 165 mg/dl (140-200); Estimated Glomerular Filt Rate 72 ml/min (>60); GFR (African American) 87 ML/MIN (>60); Globulin 2.2 g/dL (1.3-3.2); Glucose 123 mg/dl (74-100); HDL Cholesterol 45 mg/dl (40-60); Iron 97 ug/dL (37-170); Total Protein,Serum 6.4 g/dl (6.3-8.2); Triglycerides 160 mg/dl (30-150); VLDL Cholesterol 32 mg/dL (0-40)
[2024-08-15 09:19] LABS: Total Iron Binding Capacity 263 ug/dL (265-497)
[2024-08-15 09:20] LABS: Direct LDL Cholesterol 84.49 mg/dL (100-129)
[2024-08-15 09:43] LABS: Ferritin 319 ng/ml (11.1-264)
[2024-08-15 10:09] LABS: Hemoglobin A1C 6.4 % (4.0-6.0)
[2024-08-18 04:14] LABS: ALT (SGPT) P5P 30 IU/L (0-40); AST (SGOT) P5P 30 IU/L (0-40); Alpha 2-Macroglobulins, Qn 157 mg/dL (110-276); Apolipoprotein A-1 144 mg/dL (116-209); Bilirubin, Total 0.4 mg/dL (0.0-1.2); Cholesterol, Total 168 mg/dL (100-199); Fibrosis Score 0.14 (0.00-0.21); GGT 45 IU/L (0-60); Glucose 121 mg/dL (70-99); Haptoglobin 217 mg/dL (37-355); NASH Score 0.62 (0.00-0.25); Steatosis Score 0.77 (0.00-0.40); Triglycerides 171 mg/dL (0-149)
== END 2024-08-15 23:59 | disposition home or self-care (01) ==
LOC: RAD 07:44
PROVIDERS: PCP Nurse Practitioner Family; Visit Provider Nurse Practitioner Family
DX: R79.89 Other specified abnormal findings of blood chemistry (principal); I10 Essential (primary) hypertension; E11.9 Type 2 diabetes mellitus without complications; K76.0 Fatty (change of) liver, not elsewhere classified; K82.8 Other specified diseases of gallbladder
CPT/HCPCS: 36415; 76705; 80053; 80061; 81256; 82172; 82247; 82465; 82728; 82947; 82977; 83010; 83036; 83540; 83550; 83883; 84450; 84460; 84478

== ENCOUNTER 2024-10-26 09:08 | Day surgery (SDC) | payer MEDICARE, SELFPAY ==
[2024-10-23 15:47] VITALS: BMI 32.5
--- NOTE | 2024-10-25 16:39 | EXP.HP ---
History of Present Illness *Admission Date: 10/26/24 *Reason for visit:: Screening for colon cancer *History of present illness: Mrs. Ochoa is a 64-year-old female who is here for initial screening colonoscopy. The examination is deemed medically necessary for screening colonoscopy. The patient has been seen, interviewed and examined prior to the procedure by both myself and the anesthesia provider. [facility] Disclaimer: The information contained in this section may have been updated after the patient was seen, as this information can be updated by other users. Medical History URI (upper respiratory infection) Bronchitis Sinusitis Influenza A Cervicalgia Headache Numbness and tingling of upper extremity Shortness of breath on exertion Family history of early CAD Chronic sinusitis Facial pain Acute maxillary sinusitis Left otitis media Chalazion of right eye Cyst of eyelid Stiffness of neck Acute cough Right otitis media with effusion Hyperlipidemia Edema Dyspnea on exertion Hypertension Surgical History H/O wisdom tooth extraction H/O excision of mass H/O tubal ligation Family History Mother Anemia Cancer Hypertension Father Heart attack Coronary artery disease Hyperlipidemia Grandmother Stroke Family/Other Thyroid disorder Social History (Updated 10/26/24 @ 09:59 by Francisco Booker CRNA) Smoking Status: Current every day smoker tobacco type: cigarettes second hand exposure: Yes alcohol intake: never substance use type: denies use current occupational status: retired Travel in the last 8 weeks?: None housing: house Have you lived/traveled outside US in past 30 days?: No Contact w/someone who lives/traveled outside US past 30 days?: No Exposure to someone with infectious disease in past 14 days?: No Do you have a fever (greater than 100.4 F or 38 C)?: No Have you tested positive for COVID-19?: No Exposed to someone with COVID-19 in past 14 days?: No Do you have a sore throat?: No Do you have a cough?: No Do you have any weakness?: No Do you have any diarrhea?: No Are you experiencing any unusual bleeding?: No Do you have any muscle aches/pain?: No Do you have any abdominal pain?: No Are you experiencing loss of taste or smell?: No Other Medical History Have you received the Pneumonia Vaccine: Yes Review of Systems Review of Systems Review of systems (narrative): Negative *Cardiovascular Comments: Negative *Gastrointestinal Comments: Negative *Genitourinary Comments: Negative *Musculoskeletal Comments: Negative *Neurologic Comments: Negative Meds Home Medications and Allergies Home Medications ?Medication ?Instructions ?Recorded ?Confirmed ?Type aspirin 81 mg tablet 81 mg PO DAILY 04/16/23 10/23/24 History atorvastatin 20 mg tablet 20 mg PO DAILY #90 tabs 06/19/24 10/23/24 Rx lisinopril 20 mg tablet 20 mg PO DAILY #90 tabs 06/19/24 10/23/24 Rx metformin 500 mg tablet 500 mg PO BID #180 tabs 06/26/24 10/23/24 Rx omega 7-hfm-axs-fish oil 100 1 cap PO DAILY 08/09/24 10/23/24 History mg-160 mg-1,000 mg capsule (Fish Oil) albuterol sulfate 90 mcg/actuation 1 puff inhalation NEEDED PRN 09/25/24 10/23/24 History aerosol inhaler Shortness Of Breath Or Wheezing New Prescriptions to Start Prescriptions: Allergies Allergy/AdvReac Type Severity Reaction Status Date / Time No Known Allergies Allergy Verified 10/26/24 09:31 Exam Data for Last 24 hours I & O for Last 24 hours: Intake & Output 10/22/24 10/23/24 10/24/24 10/25/24 23:59 23:59 23:59 23:59 Weight 190 lb *Routine HEENT Exam Head: Present normocephalic Eye: Present EOMI and PERRL ENT: Present mucous membranes moist *Routine Neck Exam Neck: Present supple *Routine Respiratory Exam Respiratory: Present CTA bilaterally *Routine Cardiovascular Exam Cardiovascular: Present RRR *Routine Abdominal Exam Abdominal: Present soft and normoactive bowel sounds; Absent tenderness *Routine Rectal Exam Rectal:: deferred *Routine Genitalia Exam Genitalia:: deferred *Routine Extremities Exam Extremities: Absent cyanosis, clubbing or edema *Routine Skin Exam Skin: Present warm; Absent rash *Routine Neurological Exam Neurological: Present alert and oriented X3 Assessment and Plan *Assessment and plan (1) Screening for colon cancer: Status: Acute Category: Medical Code(s): Z12.11 - Encounter for screening for malignant neoplasm of colon Plan A/P: 1. Screening for colon cancer is the preprocedural diagnosis. The patient will be anesthetized/sedated using MAC sedation. The patient has been seen and examined. Cardiac and lung assessment prior to the examination is stable. Proceed with planned screening colonoscopy.
[2024-10-26 09:34] VITALS: BP 136/67; PULSE 71; RESP 18; TEMP 36.1; O2SAT 95
[2024-10-26 09:49] LABS: POC Glucose,Bedside 110 (70-110)
--- NOTE | 2024-10-26 09:58 | P.PNANES_ITS ---
[facility] Disclaimer: The information contained in this section may have been updated after the patient was seen, as this information can be updated by other users. Medical History URI (upper respiratory infection) Bronchitis Sinusitis Influenza A Cervicalgia Headache Numbness and tingling of upper extremity Shortness of breath on exertion Family history of early CAD Chronic sinusitis Facial pain Acute maxillary sinusitis Left otitis media Chalazion of right eye Cyst of eyelid Stiffness of neck Acute cough Right otitis media with effusion Hyperlipidemia Edema Dyspnea on exertion Hypertension Surgical History H/O wisdom tooth extraction H/O excision of mass H/O tubal ligation Family History Mother Anemia Cancer Hypertension Father Heart attack Coronary artery disease Hyperlipidemia Grandmother Stroke Family/Other Thyroid disorder Social History Smoking Status: Current every day smoker tobacco type: cigarettes second hand exposure: Yes alcohol intake: never substance use type: denies use current occupational status: retired Travel in the last 8 weeks?: None housing: house [facility] Anesthesia Checklist Patient Identification Patient Identification: Arm Band and Verbal (Name & ) Structural Data Admitted From: Home Planned Operative Procedure/s: Colonoscopy Verified Documents: Surgical Consent NPO Status Verified Time NPO: 00:00 Chart Verification Results Verified: ECG Additional verifications Anesthesia Reactions: No Airway Assessment Mallampati Score:: Class II C-Spine Mobility Assessed: Yes TMJ Mobility Assessed: Yes Dentition: Poor Dentition (Capped teeth on top) Neurological Assessment Level of Consciousness: Awake, Alert and Appropriate Hx Seizures: No Numbness or tingling in extremities: No Anesthesia Plan Anesthesia Risk discussed: Yes Anesthesia Plan: Verified ASA Class: II Anesthesia Type: MAC
--- NOTE | 2024-10-26 10:34 | HMH.PROCNOTE ---
[facility] Procedure Note Date: 10/26/24 Time: 10:56 Procedure Note:: Colonoscopy Procedure Report: Colonoscopy with cold snare polypectomy Endoscopist: Saul Quintero II, MD Referring physician: SORAIDA Cardozo Date of Procedure: October 26, 2024 Equipment: Olympus [id number] adult colonoscope Sedation: MAC sedation Indication: Mrs. Ochoa is a 64-year-old female who is here for initial screening colonoscopy. She had been seen in the office for elevated liver chemistries and elevated ferritin. She did have heterozygous hemochromatosis. The patient reports no change in bowel habits, weight loss or family history of colon cancer. She does have some chronic constipation for most of her life. She also reports a rare spot of blood on the tissue from hemorrhoids if she becomes constipated. She does have occasional left upper quadrant and right upper quadrant abdominal gas pains. Procedure: Prior to the procedure, a history and physical exam was performed, and patient's medications and allergies were reviewed. The risks, benefits and alternatives of the sedation and procedure were discussed with the patient. All questions were answered and informed consent was obtained. The patient was brought to the procedure room. Patient identification and proposed procedure were verified by the physician and the nurse. The patient was placed in a left lateral decubitus position and the scope was passed under direct vision. Throughout the procedure, the patient's blood pressure, pulse, and oxygen saturations were monitored continuously. The colonoscopy was accomplished without difficulty. The patient tolerated the procedure well. Findings: On digital rectal examination there was normal rectal tone. There were no external hemorrhoids. There were external hemorrhoidal tags. The colonoscope was introduced through the anal canal to the rectum and advanced to the cecum. The ileocecal valve and appendiceal orifice were identified. The scope was advanced a short distance into the ileum which appeared grossly normal. The scope was then withdrawn into the colon. There were 6 colon polyps (ascending x 2 (4 and 16 mm), transverse x 1 (7 mm), descending x 1 (6 to 7 mm), sigmoid x 1 (4 mm) and rectum x 1 (3 mm)). These were all removed via cold snare polypectomy. The remaining cecum, ascending and transverse colon and mucosa were grossly normal. There were extensively scattered diverticuli throughout the descending and sigmoid colon (LEFT colon). The rectum itself was normal. Upon retroflexion within the rectum there were 2 internal hemorrhoids. The preparation was excellent throughout with Cumming Preparation Score of 9. The cecal time was 12 minutes. Impression: 1. Colonic polyps x 6 (ranging in size from 3 to 16 mm) 2. Extensive left-sided diverticulosis 3. Grade 2 internal hemorrhoids Plan: I will follow-up the polyp histology and recommend repeat surveillance colonoscopy again in 3 years. I would recommend a fiber bowel regimen for oral agent (Linzess or Trulance). I will discuss the findings with the patient and family.
[2024-10-26 10:57] VITALS: BP 90/45; PULSE 54; RESP 16; TEMP 36.9; O2SAT 90
[2024-10-26 11:07] VITALS: BP 123/45; PULSE 68; RESP 16; O2SAT 94
[2024-10-26 11:17] VITALS: BP 112/55; PULSE 59; O2SAT 93
[2024-10-26 11:27] VITALS: BP 109/67; PULSE 60; RESP 16; O2SAT 94
== END 2024-10-26 11:27 | disposition home or self-care (01) ==
PROVIDERS: PCP Nurse Practitioner Family; Visit Provider Internal Medicine Gastroenterology
PROC: 0DJD8ZZ Inspection of Lower Intestinal Tract, Via Natural or Artificial Opening Endoscopic (ICD-10-PCS; CPT 45378; principal; 2024-10-26 11:00)
DX: Z12.11 Encounter for screening for malignant neoplasm of colon (principal); D12.4 Benign neoplasm of descending colon; K63.5 Polyp of colon; D12.2 Benign neoplasm of ascending colon; D12.8 Benign neoplasm of rectum; K57.90 Diverticulosis of intestine, part unspecified, without perforation or abscess without bleeding; K64.1 Second degree hemorrhoids; E78.5 Hyperlipidemia, unspecified; I10 Essential (primary) hypertension; F17.210 Nicotine dependence, cigarettes, uncomplicated; Z79.899 Other long term (current) drug therapy; Z79.82 Long term (current) use of aspirin
CPT/HCPCS: 45385; 82962; J2003; J2704

== ENCOUNTER 2025-02-07 11:40 | Outpatient (CLI) | payer MEDICARE, SELFPAY ==
--- OUTSIDE RECORDS SUMMARY | 2025-02-07 11:42 | XMS_ITS | Clinical Summary ---
Author Organization Healthcare Address [address] [place] [address] Care Team Providers Care Behavioral Health Professional Name Role Phone Sharif Jalloh MD Primary Care Provider [phone] Social History Tobacco Use Types Packs/Day Years [...] of Treatment Not on file Care Teams Behavioral Health Professional Relationship Specialty Start Date End Date Sharif Jalloh [facility] [place] [address] PCP - General 07/19/20
[2025-02-07 12:52] LABS: Alanine Aminotransferase 32 U/L (12-78); Albumin Level 4.6 g/dl (3.5-5.0); Albumin/Globulin Ratio 1.8 (1.1-1.8); Alkaline Phosphatase 87 U/L (38-126); Anion Gap 10.3 mEq/L (5-15); Aspartate Amino Transferase 31 U/L (14-36); Bilirubin,Total 0.6 mg/dl (0.2-1.3); Blood Urea Nitrogen 19 mg/dl (7-17); Calcium 10.1 mg/dl (8.4-10.2); Carbon Dioxide 26 mmol/L (22.0-30.0); Chloride 103 mmol/L (98-107); Creatinine,Serum 1.00 mg/dl (0.52-1.04); Estimated Glomerular Filt Rate 55 ml/min (>60); GFR (African American) 67 ML/MIN (>60); Globulin 2.5 g/dL (1.3-3.2); Glucose 79 mg/dl (74-100); Potassium 4.3 mmoL/L (3.5-5.1); Sodium 135 mmol/L (136-145); Total Protein,Serum 7.1 g/dl (6.3-8.2)
[2025-02-07 13:59] LABS: Total Iron Binding Capacity 265 ug/dL (265-497)
[2025-02-07 14:25] LABS: Ferritin 271 ng/ml (11.1-264)
[2025-02-07 19:25] LABS: Iron 76 ug/dL (37-170)
== END 2025-02-07 23:59 | disposition home or self-care (01) ==
LOC: LAB 11:40
PROVIDERS: PCP Nurse Practitioner Family; Visit Provider Nurse Practitioner Family
DX: K76.0 Fatty (change of) liver, not elsewhere classified (principal)
CPT/HCPCS: 36415; 80053; 82728; 83540; 83550